=== PATIENT | male | born 1995 | race Caucasian/White ===

== ENCOUNTER 2020-09-07 12:42 | Inpatient (IN) | payer OTHER, MEDICAID, SELFPAY ==
[2020-09-07] VITALS (16 sets, daily range): BP systolic 110–131; BP diastolic 54–73; PULSE 96–116; RESP 18–32; TEMP 37.1–37.3; O2SAT 97–100; BMI 20.9
--- NOTE | 2020-09-07 12:51 | DI.RAD.S_ITS ---
PROCEDURE: XR HAND LT MIN 3V INDICATIONS: hand pain, injury TECHNIQUE: 3 views of the hand(s) acquired. COMPARISON: None. FINDINGS: Bones: No fracture or dislocation. Carpal bones are normally aligned. No suspicious bony lesions. Soft tissues: There is subcutaneous emphysema adjacent to the left 5th metacarpal dorsally. There may be air within the 5th metacarpophalangeal joint space. IMPRESSION: Subcutaneous emphysema dorsal to the 5th metacarpal and potentially within the 5th metacarpophalangeal joint space. No fracture. Dictated by: Barry Mccabe M.D. on 09/07/2020 at 13:11 Approved by: Barry Mccabe M.D. on 09/07/2020 at 13:12
[2020-09-07 13:05] LABS: Add Manual Diff / Slide Review NO; Basophils Absolute Auto 100 /uL (0-100); Basophils Percent Auto 0.4 % (0-2); Eosinophils Absolute Auto 0 /uL (0-450); Hematocrit 34.8 % (41-53); Hemoglobin 11.9 g/dL (13.5-17.5); Lymphocytes Absolute Auto 1400 /uL (1100-4500); Lymphocytes Percent Auto 7.6 % (25-40); Mean Corpuscular HGB Conc 34.3 % (30-36); Mean Corpuscular Hemoglobin 29.6 PG (26-34); Mean Corpuscular Volume 86.3 fL (80-100); Monocytes Absolute Auto 2500 /uL (0-900); Monocytes Percent Auto 13.3 % (3-14); Neutrophils Absolute Auto 14900 /uL (1500-7000); Neutrophils Percent Auto 78.7 % (50-75); Platelet Count 324 X10^3/uL (150-400); Red Blood Cell Count 4.03 X10^6/uL (4.5-5.9); Red Cell Distribution Width 13.9 % (11.6-14.8)
[2020-09-07] MEDS: SODIUM CHLORIDE 0.9% 1,000 ML 1000 ML IV (13:05)
[2020-09-07] MEDS: TET,DIPH,PERTUSS(ACELL),VAC/PF 0.5 ML SYRINGE IM (13:05)
[2020-09-07 13:23] LABS: Erythrocyte Sedimentation Rate 38 MM/HR (0-15); Lactate (Lactic Acid) 1.1 mmol/L (0.7-2.1)
[2020-09-07 13:25] LABS: Alanine Aminotransferase 63 IU/L (<50); Albumin 4.4 g/dL (3.5-5.0); Albumin Globulin Ratio 1.3 (1.0-2.8); Alkaline Phosphatase 104 U/L (38-126); Aspartate Aminotransferase 106 IU/L (17-59); BUN Creatinine Ratio 26.2 (6-22); Bilirubin Total 0.8 mg/dL (0.2-1.3); Blood Urea Nitrogen 37 mg/dL (9-20); Carbon Dioxide 14 mmol/L (22-32); Chloride 96 mmol/L (98-107); Estimated Glomerular Filt Rate > 60.0 mL/min (>60); Globulin 3.5 g/dL (1.7-4.1); Glucose 60 mg/dL (70-100); HEMOLYSIS < 15 (0-50); Potassium 4.1 mmol/L (3.4-5.1); Sodium 128 mmol/L (137-145); Total Protein 7.9 g/dL (6.3-8.2)
[2020-09-07] MEDS: NICOTINE 21 MG PATCH TOP (13:44)
[2020-09-07 13:45] LABS: C-Reactive Protein Quant 22.9 mg/dL (<1.0)
[2020-09-07] MEDS: DEXTROSE 50 % IN WATER 25 GM/50 ML SYRINGE IV (14:05)
[2020-09-07] MEDS: VANCOMYCIN 1,500 MG/300 ML PIGGYBACK 200 MG IV (14:11)
[2020-09-07 14:17] LABS: COVID19 - ADMIT (NP swab/PCR) Negative (Negative)
--- NOTE | 2020-09-07 14:34 | CM.SWNOTE ---
Addendum entered by Radha Sheikh 09/07/20 15:47: DRYING FRAME OPERATOR calls director of casework department Keri with [employer] in the outreach program through [facility] (Ph. # [phone]) and provides update about patient's admit. Keri states she can support patient with coordinating plan once patient is d/c. DRYING FRAME OPERATOR states that DRYING FRAME OPERATOR will ask patient if Keri can be added as his visitor and Keri indicates understanding. DRYING FRAME OPERATOR enters patient's room and asks patient if his director of casework department can be added as visitor and patient states yes, thank you. ERASMO Rosario Addendum entered by Radha Sheikh 09/07/20 14:47: Patient gives consent for DRYING FRAME OPERATOR to speak with [employer] counselor. DRYING FRAME OPERATOR calls [employer] (Ph. #[phone]) and leaves requesting return call. DRYING FRAME OPERATOR provides update regarding patient to [facility] DCP in acute care. ERASMO Rosario Original Note: DRYING FRAME OPERATOR Note DRYING FRAME OPERATOR receives call from director of casework department Keri with [employer] in the outreach program through [place] [facility] (Ph. # [phone]) Keri states that patient presents to this ED due to hand injury via EMS per request of patient, and patient refused to go to [facility]. 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 Keri states that patient pleaded for help and services and Keri recommended patient seek medical care. Keri asks this DRYING FRAME OPERATOR if patient can receive a Vivitrol shot or suboxone and if not she can provide that for patient. Keri suggests DRYING FRAME OPERATOR meet with patient with assistance for referrals to services and getting set up for detox if patient is medically clear. DRYING FRAME OPERATOR states DRYING FRAME OPERATOR will review this information with ED provider. Keri states that patient is homeless and does not like to stay at the [facility] in [place]. [place]. DRYING FRAME OPERATOR asks about patient?s current supports and Keri states that patient is connected with the day facility program at ?[facility]? on [facility] and the [facility] in [place] where he receives food at the drop in center. Keri reports that patient has not been showing up for services recently but pleaded and cried for help today when he spoke to Keri. DRYING FRAME OPERATOR reviews the above with ED Provider Dr. Malone and he states that patient cannot be provided a Vivitrol shot or suboxone at this ED. Dr. Malone reports that this patient may have a broken hand. DRYING FRAME OPERATOR receives consult to meet with patient. Plan: DRYING FRAME OPERATOR assessment to follow ERASMO Rosario
--- NOTE | 2020-09-07 14:34 | ED.UPPEXIN ---
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 Patient used just prior to his arrival. He is homeless and has no ability for follow-up. He has no fever or chills. He has no trouble breathing or chest pain. He denies any chronic medical problems. Patient refused to go to [facility] so was brought here. complaint: injury to: left and hand Other Extremity Injury: Left: hand and arm Handedness: right Place: outdoors Severity: moderate Relieving factors: none Exacerbating factors: movement of extremity Context: direct blow Associated symptoms: denies other symptoms Related Data Allergies Allergy/AdvReac Type Severity Reaction Status Date / Time No Known Drug Allergies Allergy Verified 09/07/20 13:40 Review of Systems Constitutional Constitutional: Denies chills, Denies fatigue, Denies fever(s), Denies frequent falls, Denies lethargy and Denies weakness Eyes Eyes: Denies change in vision, Denies eye discharge, Denies irritation and Denies loss of vision ENT Ears, Nose, Mouth, and Throat: Denies change in voice, Denies dizziness, Denies neck pain, Denies sore throat and Denies throat swelling Cardiovascular Cardiovascular: Denies chest pain, Denies irregular heart rhythm, Denies lightheadedness, Denies palpitations, Denies dyspnea, Denies dyspnea on exertion and Denies orthopnea Respiratory Respiratory: Denies cough, Denies dyspnea, Denies dyspnea on exertion and Denies wheezing Gastrointestinal Gastrointestinal: Denies abdominal pain, Denies change in bowel habits, Denies diarrhea, Denies nausea and Denies vomiting Musculoskeletal Musculoskeletal: Reports limited range of motion, Denies neck pain and Denies numbness Integumentary/Breasts Skin/Breast: Denies pruritus, Reports erythema, Denies rash, Reports skin pain, Reports skin swelling, Reports skin ulcer and Reports wounds Neurologic Neurologic: Denies behavioral changes, Denies confusion, Denies dizziness, Denies frequent falls, Denies loss of vision, Denies numbness and Denies weakness Psychiatric Psychiatric: Denies anxiety, Denies behavioral changes, Denies confusion, Denies depression, Denies homicidal ideation and Denies suicidal ideation Endocrine Endocrine: Denies fatigue, Denies flushing and Denies palpitations Hematologic/Lymphatic Hematologic/Lymphatic: Denies easy bruising Allergic/Immunologic Allergic/Immunologic: Denies urticaria, Denies throat swelling and Denies wheezing Patient History Social History household members: none Smoking Status: Current every day smoker alcohol intake: never Substance Use Type: heroin and amphetamines Exam Narrative Exam Narrative: GENERAL: [24] year old patient appears stated age. Disheveled, unkempt, restless, fidgety and anxious HEAD: Atraumatic. Normocephalic. EYES: Pupils equal round and reactive. Extraocular motions intact. No scleral icterus. No injection or drainage. ENT: Nose without bleeding, purulent drainage. Throat without erythema, tonsillar hypertrophy or exudate. Airway patent. NECK: Trachea midline. Non tender CARDIOVASCULAR: Tachycardic but regular rhythm without murmurs, gallops, or rubs. RESPIRATORY: Clear to auscultation. Breath sounds equal bilaterally. No wheezes, rales, or rhonchi. GASTROINTESTINAL: Abdomen soft, non-tender, nondistended. EXTREMITIES: Left upper extremity with an obvious injury to left lateral hand. He states he punched something and now has this quarter-sized open, draining lesion with surrounding erythema and swelling. Fingers do not demonstrate classic findings suggestive of tenosynovitis. Palm and hand are soft and I have low suspicion for deep space infection. Left forearm has some erythema and areas of induration which raises suspicion of a possible infectious process, however compartments are soft distal structures have intact sensation and cap refills less than 2 seconds. Painful to palpation but no crepitance and no evidence that this pain is out of proportion to the exam BACK: Nontender without deformity or crepitance. No flank tenderness. NEURO: AOx3. SKIN: No rash or erythema of visible areas Initial Vital Signs Initial Vital Signs: Vital Signs Pulse Rate 114 H 09/07/20 12:49 Respiratory Rate 19 09/07/20 12:49 Pulse Oximetry 97 09/07/20 12:49 Course Course Course Narrative: 24-year-old male does have evidence of infection but has normal lactate and my suspicion is that his abnormal vital signs including heart rate and respiratory rate are more likely due to the methamphetamines than a significant underlying sepsis. I do suspect that he has local infectious process Orders Ordered: ED Orders 09/07/20 12:51 Consult to [employer] - [employer] Attendant Stat XR hand LT min 3V Stat 09/07/20 12:55 C-Reactive Protein Quant Stat Complete Blood Count AUTO DIFF Stat Comprehensive Metabolic Panel Stat Erythrocyte Sedimentation Rate Stat Lactate (Lactic Acid) Stat 09/07/20 13:09 COVID19 - ADMIT (SOFTWARE IMPLEMENTATION PROJECT MANAGER swab/PCR) Stat 09/07/20 13:18 Blood Culture Stat 09/07/20 14:30 Urine Drug Screen, Rapid Stat 09/07/20 15:19 Arterial Blood Gas Stat Acetaminophen (Acetaminophen 325 Mg Tablet) 650 mg PO Q6HR PRN PRN Reason: Fever/Mild Pain (1-3) Haloperidol (Haloperidol 5 Mg/Ml Vial) 5 mg IV Q4HR PRN PRN Reason: Agitation Ibuprofen (Ibuprofen 600 Mg Tablet) 600 mg PO Q6HR PRN PRN Reason: Fever/Mild Pain (1-3) Lorazepam (Lorazepam 2 Mg/Ml Inj) 1 mg IV Q4HR PRN PRN Reason: Agitation Naloxone HCl (Naloxone 0.4 Mg/Ml Vial) 0.2 mg IV Q2MIN PRN PRN Reason: Opiate Reversal Discontinued Medications Dextrose (Dextrose 50 % In Water 25 Gm/50 Ml Syringe) 25 gm IV NOW ONE Stop: 09/07/20 14:05 Last Admin: 09/07/20 14:05 Dose: 25 gm Documented by: CARLOS Diphtheria/Tetanus/Acell Pertussis (Tet,Diph,Pertuss(Acell),Vac/Pf 0.5 Ml Syringe) 0.5 ml IM .ONCE ONE Stop: 09/07/20 12:52 Last Admin: 09/07/20 13:05 Dose: 0.5 ml Documented by: CARLOS Sodium Chloride (Normal Saline 0.9%) 1,000 mls @ 1,000 mls/hr IV BOLUS ONE Stop: 09/07/20 13:49 Last Infusion: 09/07/20 14:09 Dose: 0 mls/hr Documented by: Admin: 09/07/20 13:05 Dose: 1,000 mls/hr Documented by: CARLOS Vancomycin HCl/Dextrose (Vancomycin) 1,500 mg in 300 mls @ 200 mls/hr IV NOW ONE Stop: 09/07/20 15:36 Last Infusion: 09/07/20 15:43 Dose: 0 mls/hr Documented by: Admin: 09/07/20 14:11 Dose: 200 mls/hr Documented by: CARLOS Lactated Ringer's (Lactated Ringers) 1,000 mls @ 1,000 mls/hr IV BOLUS ONE Stop: 09/07/20 15:51 Piperacillin/Tazobactam/Dextrose (Zosyn) 3.375 gm in 50 mls @ 12.5 mls/hr IV Q8H MONSERRAT Piperacillin Sod/Tazobactam (Sod 4.5 gm/ Sodium Chloride) 100 mls @ 200 mls/hr IV NOW ONE Stop: 09/07/20 16:44 Influenza Virus Vaccine (Influenza Vaccine 0.5 Ml Syringe) 0.5 ml IM .ONCE ONE Stop: 09/07/20 17:03 Nicotine (Nicotine 21 Mg Patch) 21 mg TOP NOW ONE Stop: 09/07/20 13:41 Last Admin: 09/07/20 13:44 Dose: 21 mg Documented by: CARLOS Ondansetron HCl (Ondansetron 4 Mg/2 Ml Inj) 4 mg IV Q8HR PRN PRN Reason: Nausea And Vomiting Vital Signs Vital signs: Vital Signs - 8 hr 09/07/20 12:49 09/07/20 12:51 09/07/20 13:00 Pulse Rate 114 H 114 H 114 H Respiratory Rate 19 20 22 Blood Pressure 131/63 Pulse Oximetry 97 99 97 09/07/20 13:30 09/07/20 13:44 09/07/20 14:00 Pulse Rate 113 H 105 H 116 H Respiratory Rate 24 24 26 H Blood Pressure 110/54 L 113/58 L Pulse Oximetry 97 97 97 09/07/20 14:30 09/07/20 15:00 09/07/20 15:01 Pulse Rate 109 H 109 H 108 H Respiratory Rate 28 H 30 H 32 H Blood Pressure 119/61 113/57 L Pulse Oximetry 98 98 98 MDM - Extremity Injury (Upper) Lab Data Result diagrams: 09/07/20 12:55 09/07/20 12:55 Labs: Lab Results 09/07/20 09/07/20 09/07/20 Range/Units 12:55 12:55 12:55 WBC 19.0 H (4.5-11.0) X10^3/uL RBC 4.03 L (4.5-5.9) X10^6/uL Hgb 11.9 L (13.5-17.5) g/dL Hct 34.8 L (41-53) % MCV 86.3 (80-100) fL MCH 29.6 (26-34) PG MCHC 34.3 (30-36) % RDW 13.9 (11.6-14.8) % Plt Count 324 (150-400) X10^3/uL Neut % (Auto) 78.7 H (50-75) % Lymph % (Auto) 7.6 L (25-40) % [place] % (Auto) 13.3 (3-14) % Eos % (Auto) 0.0 L (2-4) % Baso % (Auto) 0.4 (0-2) % Neut # (Auto) 65575 H (0551-7897) /uL Lymph # (Auto) 1400 (0264-5488) /uL [place] # (Auto) 2500 H (0-900) /uL Eos # (Auto) 0 (0-450) /uL Baso # (Auto) 100 (0-100) /uL ESR 38 H (0-15) MM/HR ABG pH (7.35-7.45) ABG pCO2 (35-45) mmHg ABG pO2 (80-100) mmHg ABG HCO3 (22-26) mmol/L ABG Total CO2 (21-31) mmol/L ABG O2 Saturation (95-100) % ABG Base Excess (-2-2) mmol/L FiO2 Sodium 128 L (137-145) mmol/L Potassium 4.1 (3.4-5.1) mmol/L Chloride 96 L (98-107) mmol/L Carbon Dioxide 14 L (22-32) mmol/L BUN 37 H (9-20) mg/dL Creatinine 1.41 H (0.66-1.25) mg/dL Estimated GFR > 60.0 (>60) mL/min BUN/Creatinine Ratio 26.2 H (6-22) Glucose 60 L (70-100) mg/dL Lactate (0.7-2.1) mmol/L Calcium 9.0 (8.4-10.2) mg/dL Total Bilirubin 0.8 (0.2-1.3) mg/dL AST 106 H (17-59) IU/L ALT 63 H (<50) IU/L Alkaline Phosphatase 104 (38-126) U/L C-Reactive Protein 22.9 H (<1.0) mg/dL Total Protein 7.9 (6.3-8.2) g/dL Albumin 4.4 (3.5-5.0) g/dL Globulin 3.5 (1.7-4.1) g/dL Albumin/Globulin Ratio 1.3 (1.0-2.8) U Opiates 300ng/mL cut (Negative) Ur Oxycodone Screen (Negative) Urine Methadone Screen (Negative) Ur Barbiturates Screen (Negative) U Tricyclic Antidepress (Negative) Ur Phencyclidine Scrn (Negative) Ur Amphetamines Screen (Negative) U Methamphetamines Scrn (Negative) Ur MDMA Scrn (Ecstasy) (Negative) U Benzodiazepines Scrn (Negative) Urine Cocaine Screen (Negative) U Marijuana (THC) Screen (Negative) SARS-CoV-2 (PCR) (Negative) 09/07/20 09/07/20 09/07/20 Range/Units 12:55 13:09 14:30 WBC (4.5-11.0) X10^3/uL RBC (4.5-5.9) X10^6/uL Hgb (13.5-17.5) g/dL Hct (41-53) % MCV (80-100) fL MCH (26-34) PG MCHC (30-36) % RDW (11.6-14.8) % Plt Count (150-400) X10^3/uL Neut % (Auto) (50-75) % Lymph % (Auto) (25-40) % [place] % (Auto) (3-14) % Eos % (Auto) (2-4) % Baso % (Auto) (0-2) % Neut # (Auto) (6685-1921) /uL Lymph # (Auto) (6141-7542) /uL [place] # (Auto) (0-900) /uL Eos # (Auto) (0-450) /uL Baso # (Auto) (0-100) /uL ESR (0-15) MM/HR ABG pH (7.35-7.45) ABG pCO2 (35-45) mmHg ABG pO2 (80-100) mmHg ABG HCO3 (22-26) mmol/L ABG Total CO2 (21-31) mmol/L ABG O2 Saturation (95-100) % ABG Base Excess (-2-2) mmol/L FiO2 Sodium (137-145) mmol/L Potassium (3.4-5.1) mmol/L Chloride (98-107) mmol/L Carbon Dioxide (22-32) mmol/L BUN (9-20) mg/dL Creatinine (0.66-1.25) mg/dL Estimated GFR (>60) mL/min BUN/Creatinine Ratio (6-22) Glucose (70-100) mg/dL Lactate 1.1 (0.7-2.1) mmol/L Calcium (8.4-10.2) mg/dL Total Bilirubin (0.2-1.3) mg/dL AST (17-59) IU/L ALT (<50) IU/L Alkaline Phosphatase (38-126) U/L C-Reactive Protein (<1.0) mg/dL Total Protein (6.3-8.2) g/dL Albumin (3.5-5.0) g/dL Globulin (1.7-4.1) g/dL Albumin/Globulin Ratio (1.0-2.8) U Opiates 300ng/mL cut Positive H (Negative) Ur Oxycodone Screen Negative (Negative) Urine Methadone Screen Negative (Negative) Ur Barbiturates Screen Negative (Negative) U Tricyclic Antidepress Negative (Negative) Ur Phencyclidine Scrn Negative (Negative) Ur Amphetamines Screen Positive H (Negative) U Methamphetamines Scrn Positive H (Negative) Ur MDMA Scrn (Ecstasy) Negative (Negative) U Benzodiazepines Scrn Negative (Negative) Urine Cocaine Screen Negative (Negative) U Marijuana (THC) Screen Negative (Negative) SARS-CoV-2 (PCR) Negative (Negative) 09/07/20 Range/Units 15:19 WBC (4.5-11.0) X10^3/uL RBC (4.5-5.9) X10^6/uL Hgb (13.5-17.5) g/dL Hct (41-53) % MCV (80-100) fL MCH (26-34) PG MCHC (30-36) % RDW (11.6-14.8) % Plt Count (150-400) X10^3/uL Neut % (Auto) (50-75) % Lymph % (Auto) (25-40) % [place] % (Auto) (3-14) % Eos % (Auto) (2-4) % Baso % (Auto) (0-2) % Neut # (Auto) (1059-4350) /uL Lymph # (Auto) (1550-4693) /uL [place] # (Auto) (0-900) /uL Eos # (Auto) (0-450) /uL Baso # (Auto) (0-100) /uL ESR (0-15) MM/HR ABG pH 7.37 (7.35-7.45) ABG pCO2 27.1 L (35-45) mmHg ABG pO2 105 H (80-100) mmHg ABG HCO3 16 L (22-26) mmol/L ABG Total CO2 16 L (21-31) mmol/L ABG O2 Saturation 98 (95-100) % ABG Base Excess -10.0 L (-2-2) mmol/L FiO2 21 Sodium (137-145) mmol/L Potassium (3.4-5.1) mmol/L Chloride (98-107) mmol/L Carbon Dioxide (22-32) mmol/L BUN (9-20) mg/dL Creatinine (0.66-1.25) mg/dL Estimated GFR (>60) mL/min BUN/Creatinine Ratio (6-22) Glucose (70-100) mg/dL Lactate (0.7-2.1) mmol/L Calcium (8.4-10.2) mg/dL Total Bilirubin (0.2-1.3) mg/dL AST (17-59) IU/L ALT (<50) IU/L Alkaline Phosphatase (38-126) U/L C-Reactive Protein (<1.0) mg/dL Total Protein (6.3-8.2) g/dL Albumin (3.5-5.0) g/dL Globulin (1.7-4.1) g/dL Albumin/Globulin Ratio (1.0-2.8) U Opiates 300ng/mL cut (Negative) Ur Oxycodone Screen (Negative) Urine Methadone Screen (Negative) Ur Barbiturates Screen (Negative) U Tricyclic Antidepress (Negative) Ur Phencyclidine Scrn (Negative) Ur Amphetamines Screen (Negative) U Methamphetamines Scrn (Negative) Ur MDMA Scrn (Ecstasy) (Negative) U Benzodiazepines Scrn (Negative) Urine Cocaine Screen (Negative) U Marijuana (THC) Screen (Negative) SARS-CoV-2 (PCR) (Negative) Point of Care Testing Glucose POC [address] Upper Extremity: Radiologist's Impression: [address] [id number] Scan ReportSigned Patient: Dhaval BuiMR#: [id number]: [id number]:[id number]/Sex: 24 / MDate of Service: 09/07/20Loc: [id number] Number: [id number] Procedure: CT UE LT w con Ordering Provider: Fernando Malone D.O. PROCEDURE: CT UE LT W CON INDICATIONS: IV drug user, concern for deep space infection elbow to hand TECHNIQUE: After the administration of intravenous contrast, 3 mm axial sections acquired of the left forearm , with coronal and sagittal reformats. COMPARISON: None. FINDINGS: Image quality: Reduced by patient motion during image acquisition.. Bones: Quality of visualization is limited by patient motion. At the diaphysis of the radius and ulna what appears to be fracture planes appears to represent a artifact of motion. No osteomyelitis found. No foreign body seen. No gas in the soft tissues found. No rim enhancing abscess is identified Soft tissues: Soft tissue edema is prominent through the forearm, without abscess formation. Cellulitis is the presumed cause. No thrombosis within the arterial or venous structures of the forearm visualized by this study. IMPRESSION: Cellulitis without osteomyelitis or foreign body. No gas in the soft tissues. Patient motion limits quality of the visualization but no definite trauma is found when this is taken into account. Dictated by: Rambo Vaughan M.D. on 09/07/2020 at 16:38 Approved by: Rambo Vaughan M.D. on 09/07/2020 at 16:41 [facility] Narrative Medical decision making narrative: Patient with advanced cellulitis will require IV antibiotics and ongoing evaluation. There is no evidence of a deep space infection requiring surgical debridement currently, however orthopedic involvement has been consulted and they will wait in as needed. Discharge Plan Departure Patient Disposition: Admitted As Inpatient Admit Date/Time: 09/07/20 15:22 Admit Provider: Ruben Powell
--- NOTE | 2020-09-07 14:35 | CM.SWNOTE ---
ROLLING CHAIR PUSHER Assessment ROLLING CHAIR PUSHER - Network Architect Assessment ROLLING CHAIR PUSHER/Network Architect Assessment Time Spent with Patient Start date 09/07/20 Visit Start Time 13:15 End date 09/07/20 Visit End Time 13:40 Total time Care Management spent on 25 patient visit-in minutes Mental Health Screening Include Onset, Duration, Intensity Psych. Hx Mental Health and Chemical Patient states dx of ADHD, Dependency depression and anxiety and reports previously taking Sertoline but he did not notice a difference. Patient states that he took Adderall as a child, patient denies current medication and states he took quite a few medications when I was a child . Patient states ongoing relapse and substance use of Methamphetamine and Heroin and reports he smokes a pack a day of cigarettes. Substance Abuse Screening Include Onset, Duration, Intensity Presenting Problem Patient presents to this ED via EMS with left hand injury. Patient states that used Methamphetamine and Heroin last night. Precipitating Event(s) Patient states that he was upset and angry and punched a wall. Patient Strengths Patient shows some insight. Current Behavioral Health Provider(s) Patient states he saw a Include Facility, Provider, Ph. # counselor from age [age] but did not disclose there name and states that he did not want to engage in therapy at the age of 18. Patient states that he has seen [facility] substance use disorder counselors on and off but not consistently. Family Hx of Behavioral Abuse None reported. Patient states that his family supports him from a distance due to his repeating relapses and it cause turmoil with his family. Rehab Facilities? ((Date(s), Location(s) Patient states he has been to ) rehab 9 times but did not disclose locations and dates. History of Withdrawal? Seizures? Patient did not report history of withdrawals or seizures but reports that he is withdrawing right now. Longest Period of Sobriety Patient did not report longest period of sobriety, patient's case mgr states that he was clean for 3 months prior to recent use. Psychosocial information & Support Patient is 24 y/o homeless Systems male who resides in [place] . Patient states his family supports him from a distance but his mother and aunt are growing old. Patient states he does not want his family to know he is here. School/Work None reported. Legal Concerns Legal Matters - Outstanding Issues None reported. manager spring reports frequent encounters with [place] PD. Mental Status Orientation (Person/Place/Time) A/Ox3. Parent is aware of self , place, and person. Time was not assessed. Stated Mood fine Affect (Congruent with Mood?) Anxious, labile, full range, congruent with mood. Thought Content - Specify/Describe Patient denies hallucinations Obsessions, Delusions, Hallucinations and voices and states he is not schizophrenic. Patient states that he has paranoia for days and days when he is sleep deprived. Thought Processes (Oreancl-Trwrnjuc-Hzqr Disorganized Ijartrpf-Owqztowq-Giyymlthwk- Tfbskxcwigovyv-Robpmug-Rjaawjgvnpmz- Thought Blocking) Speech (Unotys-Joyu-Jrotwio-Rapid-Soft- Rapid, and slurred Loud-Pressured) Motor (Yiyoep-Lpllkvfmu-Ykrd-Other) Excessive, patient shifts legs, head and arms with constant movement and without relief throughout assessment. Insight (Knfo-Iqan-Kjja/Limited) Fair/limited Judgement (Hkhc-Gzrk-Chqr/Limited) Poor/limited Impulse Control (Adequate-Impaired) Impaired Memory (Mpwmksmmd-Jbnerz-Jwybtj, Somewhat intact, not formally Impaired-Intact) assessed Concentration (Intact-Impaired) Patient easily distracted, somewhat intact Attention (Intact-Impaired) Somewhat intact Behavior (Appropriate-Inappropriate) Appropriate, patient was polite and communicative. Patient had poor eye contact with eyes closed. Additional Comment Patient continued to state that he has answered most of these questions before but understands that ROLLING CHAIR PUSHER needs to ask questions to provide assistance. Patient was amicable and compliant in answering ROLLING CHAIR PUSHER's questions but was difficult to understand due to his rapid and slurred speech. Patient displays abnormal movements throughout interview. Risk Assessment Suicidal Ideation (Plan) No Homicidal Ideation (Plan) No Comment Patient denies SI, HI and intention to harm self. Intervention Intervention ROLLING CHAIR PUSHER meets with patient. Patient reports his recent drug use and his self inflicted injury. ROLLING CHAIR PUSHER discusses with patient that patient may need to stay at the hospital until medically clear, patient indicates understanding and agreement. Patient states that he is homeless and has been to rehab 9 times but presents as open to services available to him. Patient gives consent to speak with his case mgr with [facility] program and his Substance Use Disorder counselor at [facility]. Patient presents as agreeable to accept assistance available to him. ROLLING CHAIR PUSHER reviews the above with ED provider Dr. Malone and ELVIN Edmond and both indicate understanding and agreement. It is the opinion of this ROLLING CHAIR PUSHER that patient is not currently safe to d/c to the community. Patient is not medically clear for d/c and will likely be admitted due to injury and infections. Plan RA Plan Patient to be admitted for further medical care due to possible infection Plan for further DCP assessment regarding next steps for detox and/or services when medically clear for d/c. ERASMO Rosario
[2020-09-07 15:25] LABS: UR Morphine/Opiate cutoff 300 Positive (Negative); Ur Creatinine Normal (Normal); Ur Specific Gravity Normal (Normal); Urine Tetrahydrocannabinol Negative (Negative); Urine pH Normal (Normal)
[2020-09-07 15:26] LABS: Urine Amphetamines Positive (Negative); Urine Barbiturates Negative (Negative); Urine Benzodiazepines Negative (Negative); Urine Cocaine Negative (Negative); Urine MDMA Negative (Negative); Urine Methadone Negative (Negative); Urine Methamphetamines Positive (Negative); Urine Oxycodone Negative (Negative); Urine Phencyclidine Negative (Negative); Urine Tricyclic Antidepressant Negative (Negative)
[2020-09-07 15:28] LABS: Fractionated Inspired Oxygen 21; HCO3 ABG 16 mmol/L (22-26); Oxygen Saturation ABG 98 % (95-100); PCO2 ABG 27.1 mmHg (35-45); PO2 ABG 105 mmHg (80-100); TCO2 ABG 16 mmol/L (21-31); pH ABG 7.37 (7.35-7.45)
--- NOTE | 2020-09-07 15:31 | DI.CT.S_ITS ---
PROCEDURE: CT UE LT W CON INDICATIONS: IV drug user, concern for deep space infection elbow to hand TECHNIQUE: After the administration of intravenous contrast, 3 mm axial sections acquired of the left forearm , with coronal and sagittal reformats. COMPARISON: None. FINDINGS: Image quality: Reduced by patient motion during image acquisition.. Bones: Quality of visualization is limited by patient motion. At the diaphysis of the radius and ulna what appears to be fracture planes appears to represent a artifact of motion. No osteomyelitis found. No foreign body seen. No gas in the soft tissues found. No rim enhancing abscess is identified Soft tissues: Soft tissue edema is prominent through the forearm, without abscess formation. Cellulitis is the presumed cause. No thrombosis within the arterial or venous structures of the forearm visualized by this study. IMPRESSION: Cellulitis without osteomyelitis or foreign body. No gas in the soft tissues. Patient motion limits quality of the visualization but no definite trauma is found when this is taken into account. Dictated by: Rambo Vaughan M.D. on 09/07/2020 at 16:38 Approved by: Rambo Vaughan M.D. on 09/07/2020 at 16:41
--- NOTE | 2020-09-07 17:14 | P.CONS_ITS ---
History of Present Illness Consult details Date Patient Seen: 09/07/20 Time Patient Seen: 17:03 Chief complaint: Left Hand Injury/Wound Reason for consult: skin infection, open wound, drug use Requesting provider: Fernando Malone Narrative: 24 yo M with hx of IV drug use and admission to medicine team for cellulitis and ulcer of extremities. Patient is poor historian due to drug usage and does not recall cleared the history of his current skin lesions. Meds Home Medications and Allergies Allergies Allergy/AdvReac Type Severity Reaction Status Date / Time No Known Drug Allergies Allergy Verified 09/07/20 13:40 Exam Vital Signs (past 8 hours): - 09/07/20 12:49 09/07/20 12:51 09/07/20 13:00 Pulse Rate 114 H 114 H 114 H Respiratory Rate 19 20 22 Blood Pressure 131/63 Pulse Oximetry 97 99 97 09/07/20 13:30 09/07/20 13:44 09/07/20 14:00 Pulse Rate 113 H 105 H 116 H Respiratory Rate 24 24 26 H Blood Pressure 110/54 L 113/58 L Pulse Oximetry 97 97 97 09/07/20 14:30 09/07/20 15:00 09/07/20 15:01 Pulse Rate 109 H 109 H 108 H Respiratory Rate 28 H 30 H 32 H Blood Pressure 119/61 113/57 L Pulse Oximetry 98 98 98 09/07/20 16:36 09/07/20 17:04 Pulse Rate Respiratory Rate 18 Blood Pressure Pulse Oximetry 98 Oxygen Delivery Method Room Air Extrem Other: L forearm with 2 cm area of erythema and induration on the ulnar aspect, no open wound on the forearm. 1 cm ulcer to ulnar aspect of left hand without exposed bone, scant serous drainage on exam. right leg with 1.5 cm area of induration and erythema, pain to palpation, no drainage. Objective Labs Result Diagrams: 09/07/20 12:55 09/07/20 12:55 Labs: Laboratory Results - last 24 hr 09/07/20 09/07/20 09/07/20 12:55 12:55 12:55 WBC 19.0 H RBC 4.03 L Hgb 11.9 L Hct 34.8 L MCV 86.3 MCH 29.6 MCHC 34.3 RDW 13.9 Plt Count 324 Neut % (Auto) 78.7 H Lymph % (Auto) 7.6 L [place] % (Auto) 13.3 Eos % (Auto) 0.0 L Baso % (Auto) 0.4 Neut # (Auto) 73371 H Lymph # (Auto) 1400 [place] # (Auto) 2500 H Eos # (Auto) 0 Baso # (Auto) 100 ESR 38 H ABG pH ABG pCO2 ABG pO2 ABG HCO3 ABG Total CO2 ABG O2 Saturation ABG Base Excess FiO2 Sodium 128 L Potassium 4.1 Chloride 96 L Carbon Dioxide 14 L BUN 37 H Creatinine 1.41 H Estimated GFR > 60.0 BUN/Creatinine Ratio 26.2 H Glucose 60 L Lactate Calcium 9.0 Total Bilirubin 0.8 AST 106 H ALT 63 H Alkaline Phosphatase 104 C-Reactive Protein 22.9 H Total Protein 7.9 Albumin 4.4 Globulin 3.5 Albumin/Globulin Ratio 1.3 U Opiates 300ng/mL cut Ur Oxycodone Screen Urine Methadone Screen Ur Barbiturates Screen U Tricyclic Antidepress Ur Phencyclidine Scrn Ur Amphetamines Screen U Methamphetamines Scrn Ur MDMA Scrn (Ecstasy) U Benzodiazepines Scrn Urine Cocaine Screen U Marijuana (THC) Screen SARS-CoV-2 (PCR) 09/07/20 09/07/20 09/07/20 12:55 13:09 14:30 WBC RBC Hgb Hct MCV MCH MCHC RDW Plt Count Neut % (Auto) Lymph % (Auto) [place] % (Auto) Eos % (Auto) Baso % (Auto) Neut # (Auto) Lymph # (Auto) [place] # (Auto) Eos # (Auto) Baso # (Auto) ESR ABG pH ABG pCO2 ABG pO2 ABG HCO3 ABG Total CO2 ABG O2 Saturation ABG Base Excess FiO2 Sodium Potassium Chloride Carbon Dioxide BUN Creatinine Estimated GFR BUN/Creatinine Ratio Glucose Lactate 1.1 Calcium Total Bilirubin AST ALT Alkaline Phosphatase C-Reactive Protein Total Protein Albumin Globulin Albumin/Globulin Ratio U Opiates 300ng/mL cut Positive H Ur Oxycodone Screen Negative Urine Methadone Screen Negative Ur Barbiturates Screen Negative U Tricyclic Antidepress Negative Ur Phencyclidine Scrn Negative Ur Amphetamines Screen Positive H U Methamphetamines Scrn Positive H Ur MDMA Scrn (Ecstasy) Negative U Benzodiazepines Scrn Negative Urine Cocaine Screen Negative U Marijuana (THC) Screen Negative SARS-CoV-2 (PCR) Negative 09/07/20 15:19 WBC RBC Hgb Hct MCV MCH MCHC RDW Plt Count Neut % (Auto) Lymph % (Auto) [place] % (Auto) Eos % (Auto) Baso % (Auto) Neut # (Auto) Lymph # (Auto) [place] # (Auto) Eos # (Auto) Baso # (Auto) ESR ABG pH 7.37 ABG pCO2 27.1 L ABG pO2 105 H ABG HCO3 16 L ABG Total CO2 16 L ABG O2 Saturation 98 ABG Base Excess -10.0 L FiO2 21 Sodium Potassium Chloride Carbon Dioxide BUN Creatinine Estimated GFR BUN/Creatinine Ratio Glucose Lactate Calcium Total Bilirubin AST ALT Alkaline Phosphatase C-Reactive Protein Total Protein Albumin Globulin Albumin/Globulin Ratio U Opiates 300ng/mL cut Ur Oxycodone Screen Urine Methadone Screen Ur Barbiturates Screen U Tricyclic Antidepress Ur Phencyclidine Scrn Ur Amphetamines Screen U Methamphetamines Scrn Ur MDMA Scrn (Ecstasy) U Benzodiazepines Scrn Urine Cocaine Screen U Marijuana (THC) Screen SARS-CoV-2 (PCR) Assessment & Plan Assessment & Plan narrative: Patient is admitted for multiple skin lesions related to drug use. UE CT with contrast does not show abscess that require surgical drainage. I recommend wound care to left hand ulcer using wet-to-dry dressing change BID. Warm compresses to both forearm and leg indurated area. There is minimum subcuatanous involvement at this time. IV antibiotics per medicine team. No surgical treatment indicated at this time.
[2020-09-07 18:17] LABS: Creatine Kinase 2661 U/L (55-170)
[2020-09-07 18:22] LABS: Troponin I < 0.012 ng/mL (0.01-0.034)
[2020-09-07] MEDS: LACTATED RINGERS 1,000 ML 1000 ML IV (18:43)
[2020-09-07] MEDS: PIPERACILLIN/TAZO 4.5 GM in SODIUM CHLORIDE 0.9% 100 ML 25 ML IV (19:00)
[2020-09-07] MEDS: PIPERACILLIN/TAZO 4.5 GM in SODIUM CHLORIDE 0.9% 100 ML 200 ML IV (19:16)
[2020-09-07] MEDS: VANCOMYCIN 1,000 MG/200 ML PIGGYBACK 200 MG IV (20:25)
[2020-09-07] MEDS: LACTATED RINGERS 1,000 ML 150 ML IV (20:27)
--- NOTE | 2020-09-07 20:30 | P.HP_ITS ---
History of Present Illness History of Present Illness Date Patient Seen: 09/07/20 Time Patient Seen: 16:32 Chief complaint: Left Hand Injury/Wound Narrative: Mr. Bui is a 24M with PMH active IV drug use with heroin, and methamphetamines, no other medical issues, he is homeless and lives on street or in shelters. He apparently punched a wall in anger approximately 5 days ago and developed swelling of his left hand. He noted that he was developing an infection at least four days ago. He did use meth and heroin earlier today, and is still somewhat confused in his history. He denies fevers/chills. No chest pain, trouble breathing. No nausea, vomiting, diarrhea, abdominal pain. In the ER, workup was done he was afebrile, tachycardic in the 110s,tachypneic in 20s, satting normally, with normal blood pressures. Labs notable for WBC 19, hemoglobin 11.9, sodium 128, co2 14, BUN 37, creatinine 1.41. CK 2661. ABG pH of 7.37, pco2 27.1, hco3 16. Urine tox positive for opiates and amphetamines. Imaging was done with hand xray showing subcutaneous emphysema dorsal to 5th metacarpal and possibly within joint space. Left upper extremity CT scan showed cellulitis with no osteomyetlitis, abscess, or gas in tissues. He was started on IV antibiotics with vancomycin and zosyn and given IV fluids and admitted for further treatment. Patient History Family & Social History Social History: household members none Prior Living Arrangements Homeless Safety & Behavioral: Feels Safe in Current Yes Environment Been Physically Hurt or No Threatened By a Person Suicidal Ideation Description None Suicide Plan Description No Plan Tobacco & Substance use: Tobacco type cigarettes Smoking Status Current every day smoker Smoking packs per day 1 alcohol intake never Substance Use Type amphetamines,heroin Meds Home Medications and Allergies Home Medications Medication Instructions Recorded Confirmed Type No Known Home Medications 09/07/20 09/07/20 History Allergies Allergy/AdvReac Type Severity Reaction Status Date / Time No Known Drug Allergies Allergy Verified 09/07/20 13:40 Review of Systems Review of Systems Narrative: 14 systems reviewed and negative aside from HPI Exam Vital Signs (past 8 hours): - 09/07/20 12:49 09/07/20 12:51 09/07/20 13:00 Temperature Pulse Rate 114 H 114 H 114 H Respiratory Rate 19 20 22 Blood Pressure 131/63 Pulse Oximetry 97 99 97 09/07/20 13:30 09/07/20 13:44 09/07/20 14:00 Temperature Pulse Rate 113 H 105 H 116 H Respiratory Rate 24 24 26 H Blood Pressure 110/54 L 113/58 L Pulse Oximetry 97 97 97 09/07/20 14:30 09/07/20 15:00 09/07/20 15:01 Temperature Pulse Rate 109 H 109 H 108 H Respiratory Rate 28 H 30 H 32 H Blood Pressure 119/61 113/57 L Pulse Oximetry 98 98 98 09/07/20 16:36 09/07/20 17:00 09/07/20 17:04 Temperature 99.2 F Pulse Rate 104 H Respiratory Rate 22 18 Blood Pressure 110/73 Pulse Oximetry 98 100 09/07/20 19:40 Temperature 98.8 F Pulse Rate 104 H Respiratory Rate 18 Blood Pressure 123/64 Pulse Oximetry 100 Oxygen Delivery Method Room Air Oxygen Flow Rate 0 Narrative Exam Narrative: GEN: restless, anxious, disheveled HEENT: moist mucous membranes, PEERL NECK: no jvd, trachea midline CV: tachycardic, regular rate and rhythm with no murmurs RESPIRATORY: clear bilaterally with no wheezes, rales, or rhonchi. GASTROINTESTINAL: Abdomen soft, non-tender, nondistended. No organomegaly. Normal bowel sounds EXTREMITIES: Left upper extremity with 1cm ulcer on lateral, ulnar aspect of hand. There is surrounding swelling and erythema. No palpable fluctuance or masses or crepitus. No findings of tenosynovitis. Rest of hand is soft with minimal pain to palpation. Left forearm with induration, swelling and pain. Compartment are soft. Sensation intact. Hands have chronic appearing ulcers dime sized and scattered with no erythema or tenderness. Right leg with induration and erythema. NEURO: awake and oriented, answering questions appropriately aside from some tangential responses, no focal deficit, patient restless in bed but moving all extremities PSYCH: pleasant, cooperative, anxious Objective Labs Result Diagrams: 09/07/20 12:55 09/07/20 12:55 Labs: Laboratory Results - last 24 hr 09/07/20 09/07/20 09/07/20 12:55 12:55 12:55 WBC 19.0 H RBC 4.03 L Hgb 11.9 L Hct 34.8 L MCV 86.3 MCH 29.6 MCHC 34.3 RDW 13.9 Plt Count 324 Neut % (Auto) 78.7 H Lymph % (Auto) 7.6 L [facility] % (Auto) 13.3 Eos % (Auto) 0.0 L Baso % (Auto) 0.4 Neut # (Auto) 04421 H Lymph # (Auto) 1400 [facility] # (Auto) 2500 H Eos # (Auto) 0 Baso # (Auto) 100 ESR 38 H ABG pH ABG pCO2 ABG pO2 ABG HCO3 ABG Total CO2 ABG O2 Saturation ABG Base Excess FiO2 Sodium 128 L Potassium 4.1 Chloride 96 L Carbon Dioxide 14 L BUN 37 H Creatinine 1.41 H Estimated GFR > 60.0 BUN/Creatinine Ratio 26.2 H Glucose 60 L Lactate Calcium 9.0 Total Bilirubin 0.8 AST 106 H ALT 63 H Alkaline Phosphatase 104 Total Creatine Kinase Troponin I C-Reactive Protein 22.9 H Total Protein 7.9 Albumin 4.4 Globulin 3.5 Albumin/Globulin Ratio 1.3 U Opiates 300ng/mL cut Ur Oxycodone Screen Urine Methadone Screen Ur Barbiturates Screen U Tricyclic Antidepress Ur Phencyclidine Scrn Ur Amphetamines Screen U Methamphetamines Scrn Ur MDMA Scrn (Ecstasy) U Benzodiazepines Scrn Urine Cocaine Screen U Marijuana (THC) Screen SARS-CoV-2 (PCR) 09/07/20 09/07/20 09/07/20 12:55 12:55 12:55 WBC RBC Hgb Hct MCV MCH MCHC RDW Plt Count Neut % (Auto) Lymph % (Auto) [facility] % (Auto) Eos % (Auto) Baso % (Auto) Neut # (Auto) Lymph # (Auto) [facility] # (Auto) Eos # (Auto) Baso # (Auto) ESR ABG pH ABG pCO2 ABG pO2 ABG HCO3 ABG Total CO2 ABG O2 Saturation ABG Base Excess FiO2 Sodium Potassium Chloride Carbon Dioxide BUN Creatinine Estimated GFR BUN/Creatinine Ratio Glucose Lactate 1.1 Calcium Total Bilirubin AST ALT Alkaline Phosphatase Total Creatine Kinase 2661 H Troponin I < 0.012 C-Reactive Protein Total Protein Albumin Globulin Albumin/Globulin Ratio U Opiates 300ng/mL cut Ur Oxycodone Screen Urine Methadone Screen Ur Barbiturates Screen U Tricyclic Antidepress Ur Phencyclidine Scrn Ur Amphetamines Screen U Methamphetamines Scrn Ur MDMA Scrn (Ecstasy) U Benzodiazepines Scrn Urine Cocaine Screen U Marijuana (THC) Screen SARS-CoV-2 (PCR) 09/07/20 09/07/20 09/07/20 13:09 14:30 15:19 WBC RBC Hgb Hct MCV MCH MCHC RDW Plt Count Neut % (Auto) Lymph % (Auto) [facility] % (Auto) Eos % (Auto) Baso % (Auto) Neut # (Auto) Lymph # (Auto) [facility] # (Auto) Eos # (Auto) Baso # (Auto) ESR ABG pH 7.37 ABG pCO2 27.1 L ABG pO2 105 H ABG HCO3 16 L ABG Total CO2 16 L ABG O2 Saturation 98 ABG Base Excess -10.0 L FiO2 21 Sodium Potassium Chloride Carbon Dioxide BUN Creatinine Estimated GFR BUN/Creatinine Ratio Glucose Lactate Calcium Total Bilirubin AST ALT Alkaline Phosphatase Total Creatine Kinase Troponin I C-Reactive Protein Total Protein Albumin Globulin Albumin/Globulin Ratio U Opiates 300ng/mL cut Positive H Ur Oxycodone Screen Negative Urine Methadone Screen Negative Ur Barbiturates Screen Negative U Tricyclic Antidepress Negative Ur Phencyclidine Scrn Negative Ur Amphetamines Screen Positive H U Methamphetamines Scrn Positive H Ur MDMA Scrn (Ecstasy) Negative U Benzodiazepines Scrn Negative Urine Cocaine Screen Negative U Marijuana (THC) Screen Negative SARS-CoV-2 (PCR) Negative Assessment & Plan Assessment & Plan narrative: Mr. Bui is a 24M with PMH of IV drug abuse with heroin, and meth who presents with hand infection after recent laceration due to punching a wall. 1. Left hand cellulitis, questionable R leg cellulitis -has open ulcer on left hand, with surrounding swelling and erythema that extends up forearm -consistent with cellulitis, with no evidence currently of crepitus, pain out proportion, deep space infection, or compartment syndrome -will order broad spectrum antibiotics with vancomycin and zosyn -blood cultures ordered -patient has multiple causes for tachycardia, and renal dysfunction, think likely from injection drug use, and not sepsis -imaging shows no evidence of gas or abscess -appreciate orthopedic recommendations 2.Acute meth intoxication -as evidenced by tachycardia, fidgeting, positive tox, also has metabolic acidosis -currently patient pleasant but anxious -denies any etoh or benzo use -will attempt to use benzos to control anxiety and agitation, with haldol prn if necessary 3. Heroin abuse -will attempt to limit opiates for pain -may need to order to limit withdrawal -given acute setting will order for tylenol 4. Metabolic acidosis -no anion gap noted -lactate normal -likely in setting of meth intoxication -will need to watch patient's agitation closely, and ordered benzos to prevent extreme agitation, for now not febrile, no hypertension -patient currently pleasant 5. Elevated creatinine -mildly elevated at 1.4 -baseline unknown -possibly mild YOBANY -will continue with IV fluids as below -monitor creatinine closely 6. Mild rhabdomyolysis -CK at 2600 -multiple possible etiologies, but for now no evidence of compartment syndrome -most likely is in setting of meth use -will place patient on normal saline at 150 -check urinalysis for any myoglobinuria -trend CK 7. Transaminitis -mild with AST 106/ALT 63 -etiology unknown -give drug abuse will check hepatitis viral serologies Diet: Regular IVF: 150cc/hr DVT ppx: Lovenox 40U SC Code: Full, patient states he does have anyone to be proxy for his health Quality VTE Deep Vein Thrombosis/Pulmonary Embolism Present on Admission: No MIPS - Admit I confirm the patient?s Advance Care Plan is present, Code status is documented, Surrogate decision maker is in patient?s record [If Yes, STOP here]: Yes
--- NOTE | 2020-09-07 23:18 | PC.NURSE ---
Pt arrived to room @ approximately 1600. Alert/oriented, physically dirty. Pt given shower. Pt has HX of IVDU, heroin & meth. States last used on 09/06/20 Pt SpO2 98% RA IV bolus of 1000 cc given as per orders then to 150cc/hr Started IV ABO Wound to right lower thumb round, red around edges w/some pus present Wet to dry dsg to right thumb area placed as per orders. Dsg also placed to left inner beaver wound similar to above. Pt oriented to room & call system. Appears to moan while sleeping, pt states this is normal when i am coming down Resting quietly the rest of evening. Call light w/in reach, bed alarm on for pt safety. Continue w/plan of care.
[2020-09-08] VITALS (21 sets, daily range): BP systolic 101–146; BP diastolic 50–97; PULSE 84–105; RESP 12–22; TEMP 36.6–37.7; O2SAT 94–100; BMI 20.9
[2020-09-08 00:07] LABS: Appearance Urine UA CLEAR; Bilirubin Urine UA NEGATIVE (NEGATIVE); Color Urine UA YELLOW; Glucose Urine UA NEGATIVE (Negative); Ketones Urine UA 2+ (NEGATIVE); Leukocyte Esterase Urine UA NEGATIVE (NEGATIVE); Nitrite Urine UA NEGATIVE (Negative); Occult Blood Urine UA TRACE-LYSED (Negative); Protein Urine UA TRACE (Negative); Urobilinogen Urine UA 0.2 E.U./dL (0.2); pH Urine UA 5.5 (4.5-8.0)
--- NOTE | 2020-09-08 00:28 | PC.NURSE ---
patient is alert and oriented but soft spoken. Breath sounds CTA with RA sat of 99%. HRR but tachy at 100 bpm apical. Denies nausea. BT present and abdomen is soft. Denies dysuria, frequency or urgency with urination; using urinal to void. UA obtained and sent to lab. Is able to move self in bed. Gait not assessed at this time. Multiple scabbed abrasions on all extremities which patient states is due to meth use. Dressing to left hand and right LE are CDI. Swelling/tenderness/erythema to left forearm and right LE. Denies pain. Refusing to wear ordered SCD's despite education re: risks; instructed to ankle wave when awake. Fall risk score is moderate and bed alarm is activated.
[2020-09-08 01:10] LABS: Bacteria Urine None Seen; RBC Urine None Seen (0-5/HPF); WBC Urine None Seen (0-5/HPF)
[2020-09-08 01:11] LABS: Culture Indicated Urine Cult Not Indicated; Uric Acid Crystals Urine Many
[2020-09-08] MEDS: VANCOMYCIN 1,000 MG/200 ML PIGGYBACK 200 MG IV ×2 (02:51→11:21)
[2020-09-08] MEDS: PIPERACILLIN/TAZO 4.5 GM in SODIUM CHLORIDE 0.9% 100 ML 25 ML IV (04:04)
[2020-09-08] MEDS: LACTATED RINGERS 1,000 ML 150 ML IV (05:15)
[2020-09-08 06:08] LABS: Enterococcus species Not Detected (Not Detect); Listeria monocytogenes Not Detected (Not Detect); Staphylococcus species Not Detected (Not Detect); Streptococcus agalactiae (Gr B Not Detected (Not Detect); Streptococcus pneumonia Not Detected (Not Detect); Streptococcus species Detected (Not Detect)
[2020-09-08 06:09] LABS: Acinetobacter baumannii Not Detected (Not Detect); Candida albicans Not Detected (Not Detect); Candida glabrata Not Detected (Not Detect); Candida krusei Not Detected (Not Detect); Candida parapsilosis Not Detected (Not Detect); Candida tropicalis Not Detected (Not Detect); E. coli Not Detected (Not Detect); Enterobacter cloacae complex Not Detected (Not Detect); Enterobacteriaceae species Not Detected (Not Detect); Haemophilus influenzae Not Detected (Not Detect); Neisseria meningitidis Not Detected (Not Detect); Proteus species Not Detected (Not Detect); Pseudomonas aeruginosa Not Detected (Not Detect); Serratia marcescens Not Detected (Not Detect); Streptococcus pyogenes (Gr A) Detected (Not Detect)
--- NOTE | 2020-09-08 11:29 | DI.ECHO.S_ITS ---
[facility] +---------+ : : [address] : : : : [id number] : : : : Phone: [phone]+ Echocardiogram Report + + :Name: BERTHA PETTIT Study Date: 09/08/2020 Height: 72 in : :[facility] ReadingLocation: Weight: 155 lb : : Gender: Male BSA: 1.9 m2 : :: 1995 Age: 24 yrs BP: 137/58 mmHg: :Reason For Study: Endocarditis : :Ordering Physician: : :MICHAEL ROMO Performed By: Chuy Martinez : :Referring: MICHAEL ROMO : + + Interpretation Summary 1) Normal left ventricular thickness, size, wall motion, and systolic function (EF 55-60%). 2) Normal right ventricular size and function. 3) No significant valvular abnormalities. No obvious vegetation present. 4) No prior Echo available for comparison. If there is clinical concern for endocarditis, consider FAWAD if it would twisting frame changer. Procedure: A two-dimensional transthoracic echocardiogram with color flow and Doppler was performed. The study quality was technically adequate. There is no prior echocardiogram noted for this patient. Left Ventricle: The left ventricle is normal in size and wall thickness. Left ventricular systolic function is normal. The ejection fraction is estimated to be 55-60%. There are no focal wall motion abnormalities. Diastolic parameters suggest probable normal left ventricular diastolic function and normal filling pressures. Right Ventricle: The right ventricle is normal in size and function. Atria: Both atria are normal in size. There is no Doppler evidence for an interatrial shunt. Mitral Valve: The mitral valve is normal in structure and function. There is no vegetation seen on the mitral valve. There is trace mitral regurgitation. Aortic Valve: The aortic valve is normal in structure and function. There is no aortic valvular vegetation. There is no aortic valve stenosis. No aortic regurgitation is present. Tricuspid Valve: The tricuspid valve is normal in structure and function. There is no tricuspid valve vegetation. No tricuspid regurgitation. Pulmonary artery pressures cannot be estimated because of the lack of a measurable TR jet velocity but the IVC suggests a CVP of around 3 mmHg. Pulmonic Valve: The pulmonic valve is not well visualized. There is no obvious vegetation on the pulmonic valve. There is no pulmonic valvular regurgitation. Great Vessels: The aortic root is normal size. The dimensions of the ascending aorta are normal. The IVC is of normal diameter and collapses greater than 50% with a sniff. This suggests a low right atrial pressure of 3 mm Hg. Pericardium/ Pleura There is no pericardial effusion. There is no pleural effusion. MMode/2D Measurements & Calculations LVIDd: 4.7 cm LVOT diam: 2.2 cm LVIDs: 3.2 cm Ao root diam: 2.8 cm FS: 32.8 % asc Aorta Diam: 2.6 cm IVSd: 0.92 cm LVPWd: 0.77 cm LV bowen. diameter/BSA (cm/m^2): 2.5 LV sys. diameter/BSA (cm/m^2): 1.7 LA A2 area: 16.9 cm2 RA long axis: 3.9 cm LA A4 area: 14.9 cm2 RA area: 12.6 cm2 LA length (vol): 4.4 cm RA vol: 34.5 ml LA vol: 48.1 ml RA : 18.0 ml/m2 LA vol index: 25.2 ml/m2 TAPSE: 2.3 cm Doppler Measurements & Calculations Ao V2 max: 150.6 cm/sec LVOT Max Jevon: 113.7 cm/sec Ao V2 mean: 105.5 cm/sec LV V1 max P.2 mmHg Ao max P.1 mmHg LV V1 VTI: 18.3 cm Ao mean P.0 mmHg ROSALIA(I,D): 3.1 cm2 Ao V2 VTI: 23.1 cm ROSALIA(V,D): 3.0 cm2 sev ratio: 0.79 ROSALIA indexed to BSA (cm^2/m^2): 1.6 MV E max jevon: 97.5 cm/sec PA pr(Accel): 35.3 mmHg MV A max jevon: 76.8 cm/sec MV E/A: 1.3 Med Peak E' Jevon: 16.6 cm/sec E/E' med: 5.9 Lat Peak E' Jevon: 16.9 cm/sec E/E' lat: 5.8 E/e' average: 5.8 MV dec time: 0.15 sec SV(LVOT): 72.3 ml Reading Physician:04:46 PM
[2020-09-08] MEDS: CLINDAMYCIN 900 MG/50 ML PIGGYBACK 50 MG IV ×2 (13:36→21:21)
[2020-09-08 13:47] LABS: Add Manual Diff / Slide Review NO; Basophils Absolute Auto 0 /uL (0-100); Basophils Percent Auto 0.1 % (0-2); Eosinophils Absolute Auto 0 /uL (0-450); Eosinophils Percent Auto 0.4 % (2-4); Hematocrit 31.9 % (41-53); Lymphocytes Absolute Auto 1000 /uL (1100-4500); Lymphocytes Percent Auto 10.2 % (25-40); Mean Corpuscular HGB Conc 34.5 % (30-36); Mean Corpuscular Hemoglobin 29.8 PG (26-34); Mean Corpuscular Volume 86.4 fL (80-100); Monocytes Absolute Auto 1100 /uL (0-900); Monocytes Percent Auto 11.2 % (3-14); Neutrophils Absolute Auto 7800 /uL (1500-7000); Neutrophils Percent Auto 78.1 % (50-75); Platelet Count 259 X10^3/uL (150-400); Red Blood Cell Count 3.69 X10^6/uL (4.5-5.9); Red Cell Distribution Width 13.9 % (11.6-14.8)
--- NOTE | 2020-09-08 13:54 | CM.IDA ---
Addendum entered by ERASMO Jauregui 09/08/20 14:04: Patient goes by Darryl Original Note: Initial DCP Assessment Note Patient is a 24 yo male, currently homeless. Patient presents to ER after an injured hand began to swell, patient noticed signs of infection approx 4 days ago. Patient is an active heroin and meth user, recently relapsed after a 3 month period of sobriety. PCP: None Listed Payer: [facility] Reviewed chart, FITTER WELDER Radha Sheikh completed initial FITTER WELDER assessment. See her notes for detail. Patient currently NPO, surgery consulted 09.07.20, no surgery recommended. Surgery returning today to reassess. Patient has strep in his blood, sensitivities are pending. Patient has been calm and cooperative w/care today, however, patient expected to begin w/d process, ELVIN Ventura following closely. Met w/patient to introduce role. Patient pleasant, states he hopes not to return to [facility] if possible it's a trigger. Patient okay w/Senior Merchandiser Keri from [facility] being a part of care/collaboration upon DC. Following closely as medical POC unfolds. ERASMO Jauregui Discharge Planning/Care Management CM Discharge Assessment Start: 09/08/20 13:52 Freq: Status: Active Protocol: Document 09/08/20 13:53 RACHAEL (Rec: 09/08/20 13:54 RACHAEL [id number]) Discharge Planning Assessment Assigned Hydroelectric Plant Operator ERASMO Clarke DPOA/Assigned Designee Name None Advance Directives? No History Provided By Patient Prior Living Arrangements Homeless Household Members none Independent with ADL's Yes Is patient alert and oriented? Yes Barriers to Discharge Yes Comment Homeless, active heroin user, may require ongoing IV abx Discharge Plan Homeless Long-Term Community Services Social Work
[2020-09-08 14:17] LABS: INR 1.3 (0.9-1.3); Prothrombin Time 14.4 SECONDS (10.1-12.7)
[2020-09-08 14:18] LABS: Alanine Aminotransferase 45 IU/L (<50); Albumin 3.1 g/dL (3.5-5.0); Alkaline Phosphatase 76 U/L (38-126); Aspartate Aminotransferase 51 IU/L (17-59); Bilirubin Total 0.3 mg/dL (0.2-1.3); Bilirubin Unconjugated 0.3 mg/dL (0.0-1.1); Creatine Kinase 493 U/L (55-170); HEMOLYSIS < 15 (0-50); Total Protein 6.1 g/dL (6.3-8.2)
[2020-09-08] MEDS: PIPERACILLIN/TAZO 3.375 GM in SODIUM CHLORIDE 0.9% 100 ML 25 ML IV (14:41)
[2020-09-08] MEDS: LACTATED RINGERS 1,000 ML 42 ML IV (16:24)
[2020-09-08] MEDS: METOCLOPRAMIDE 10 MG/2 ML INJ IV (16:25)
[2020-09-08] MEDS: FAMOTIDINE 20 MG/2 ML VIAL IV (16:35)
--- NOTE | 2020-09-08 16:55 | PM.PREOP ---
Pre-operative Note COVID-19 COVID-19 status: Negative Result date/Date tested (Pos, Neg/Pending): 09/06/20 Interval Note History & Physical reviewed/Exam performed by Physician: Yes Changes to H&P: No H&P completed within 30 days and has changed as indicated here:: Addendum made for plan for surgical treatment due to persisting pain and swelling to left arm and right leg. Will take to OR for urgent I&D of his hand/forearm/leg.
--- NOTE | 2020-09-08 17:37 | SUR.OPER ---
Supine on padded OR bed, head on pillow, right arm secured on padded arm board at <90 degrees abduction, left arm on large padded armboard controlled by surgeon, legs uncrossed, safety belt at thigh, tape over blanket over lower left leg.
--- NOTE | 2020-09-08 18:16 | PM.OP.1 ---
Operative Date/Time/Diagnoses Date of procedure: 09/08/20 Time of procedure: 17:02 Pre-op diagnosis: 1. Left hand open wound with exposed extensor tendon 2. Left forearm abscess 3. Left leg abscess Post-op diagnosis: same Procedure & Clinicians Procedure: 1. Left hand irrigation and debridement of skin, muscle and fascia 2. Left forearm incision and drainage of abscess 3. Right leg incision and drainage of abscess Same procedure as scheduled: Yes Indications: Mr. Bui is a 24 yo M with hx of IV drug use and was admitted to medicine for cellulitis and multiple soft tissue lesions as well as intoxication from recreational drugs. Orthopedic service was consulted. Initial CT left forearm with contrast did not show any abscess colletion. Today patient's wound in his left hand continued to drain, his forearm continue to be indurated and warm and painful to examination. Patient's right leg has purulent drainage. After discussing with patient and informing him his current medical status, informed consent was obtained and he was taken to the OR for I&D of his left upper and right lower extremities. Surgeon: Peggy Mendoza Yes if Unassisted: Yes Anesthesia Type: General Operative Notes Closure Type: primary Specimen(s): other (left forearm wound) Applied: other (1/4 inch packing strip to left forearm and right leg) Estimated Blood Loss (mL): 10 Blood products transfused: none Tourniquet time (min): 31 Procedure in detail: After patient was consented of risks and benefits of surgery, informed consent was obtained and placed in the chart. Patient was taken to the operating room. No prophylactic antibiotic was given since patient has been on IV antibiotic therapy since admission. A tourniquet was placed on patient's left upper arm. Patient's left arm and right leg was prepped and draped in sterile fashion. Time-out was performed at this time. Patient's wound was explored. Any unhealthy appearing tissue was excised using scissors and scalpel. Patient's left hand open wound was explored 1st. Using the curette, unhealthy tissue inside the wound was debrided including skin and subcutaneous tissue as well as some granulation tissue. It is identified that patient has exposed extensor tendon as well as joint capsule. There was no joint capsule breach and no joint involvement. The wound was then irrigated with sterile normal saline. 3-0 PDS suture was used to close additional subcutaneous tissue over the extensor tendon. Attention was then turned to the left forearm lesion. Upon palpation there is significant induration or fluctuance in the ulnar aspect of the forearm. A 11 blade was used to make a longitudinal incision along the course of this induration. Approximately 10 cc of purulent material was immediately expressed from the wound. The purulent collection was involving both subcutaneous tissue and the muscle layer. The incision was extended to approximately 2 in in total length. The wound was explored. Additional purulent material expressed total approximately 15 cc of purulent material was expressed from the wound. At this time copious amount of sterile normal saline was used to irrigate the wound. The extended incision was loosely approximated. One quarter-inch packing strip was packed into the wound with a small tail left L side of the skin on the distal end of the incision. Attention was then turned to his right leg. The wound on the anterior lateral aspect of his right leg just distal to his knee was inspected. There was small amount of purulent material that was spontaneously draining. The wound was then expect extended using a 11 blade. Metzenbaum scissor was used to explore the deeper part of the wound. Another 2 cc of purulent material except expressed from the wound. The leg wound was also packed with quarter-inch packing strip. And small tail was left outside of the skin. No suture was placed into the leg wound since it is the small incision. Prior to packing sterile normal saline was also used to irrigate the wound at this time. A small amount of unhealthy material was excised using scalpel which includes skin and subcutaneous tissue. After the incision drainage and irrigation debridement was completed the wounds were covered with Xeroform and gauze. The arm was wrapped in a Fidencio bandage. And a sterile dressing was applied the patient's right leg wound. Prior to prepping and draping patient's body was explored and no other lesion was identified to be indicated for surgical treatment. Patient tolerated the procedure well and there were no complications estimated blood loss is 10 cc. Patient will be admitted to the inpatient hospital for IV therapy to treat his ongoing infection. There is no additional surgical debridement plan for him. Patient's packing strips can be removed tomorrow. Patient can be discharged on oral antibiotics per Medicine team recommendation. Complications: none Post-operative Condition: stable Disposition: PACU Plan for aftercare: Admit to inpatient hospital
[2020-09-08] MEDS: LORazepam 2 MG/ML INJ 1 MG IV ×2 (18:32→18:47)
[2020-09-08] MEDS: ACETAMINOPHEN 325 MG TABLET 650 MG PO (18:42)
[2020-09-08] MEDS: LACTATED RINGERS 1,000 ML 125 ML IV (19:20)
--- NOTE | 2020-09-08 20:23 | PM.PN.1 ---
Subjective Subjective Date Patient Seen: 09/08/20 Time Patient Seen: 08:23 Interval history: Today he is less confused and agitated. However he is feeling anxious, his left forearm is more painful as his R leg. He has no fevers or chills. No chest pain, shortness of breath. Exam Vital Signs (past 8 hours): - 09/08/20 15:50 09/08/20 15:59 09/08/20 16:32 Temperature 99.8 F H 98.6 F Pulse Rate 93 H 92 H Respiratory Rate 16 18 Blood Pressure 146/82 H 125/64 Pulse Oximetry 96 100 100 09/08/20 18:17 09/08/20 18:22 09/08/20 18:27 Temperature 98 F Pulse Rate 88 85 84 Respiratory Rate 21 19 21 Blood Pressure 117/65 123/72 128/78 Pulse Oximetry 99 100 98 09/08/20 18:28 09/08/20 18:33 09/08/20 18:36 Temperature Pulse Rate 85 86 87 Respiratory Rate 12 12 12 Blood Pressure 129/83 134/84 Pulse Oximetry 99 100 100 09/08/20 18:40 09/08/20 18:45 09/08/20 18:49 Temperature Pulse Rate 91 H 87 88 Respiratory Rate 12 20 22 Blood Pressure 138/82 142/97 H Pulse Oximetry 100 100 100 09/08/20 18:52 09/08/20 19:15 09/08/20 19:45 Temperature 98.1 F 98.3 F 97.9 F Pulse Rate 91 H 105 H 91 H Respiratory Rate 16 15 16 Blood Pressure 143/90 H 139/92 H 131/75 Pulse Oximetry 100 97 96 Oxygen Delivery Method Room Air Oxygen Flow Rate 0 Narrative Exam Narrative: GEN: restless, anxious, disheveled HEENT: moist mucous membranes, PEERL NECK: no jvd, trachea midline CV: tachycardic, regular rate and rhythm with no murmurs RESPIRATORY: clear bilaterally with no wheezes, rales, or rhonchi. GASTROINTESTINAL: Abdomen soft, non-tender, nondistended. No organomegaly. Normal bowel sounds EXTREMITIES: Left upper extremity with 1cm ulcer on lateral, ulnar aspect of hand. There is surrounding swelling and erythema. No palpable fluctuance or masses or crepitus. No findings of tenosynovitis. Rest of hand is soft with minimal pain to palpation. Left forearm with induration, swelling and pain which is worsening in extent. Compartment are soft. Sensation intact. Hands have chronic appearing ulcers dime sized and scattered with no erythema or tenderness. Right leg with induration and erythema. NEURO: awake and oriented, answering questions appropriately aside, no focal deficit, patient restless in bed but moving all extremities PSYCH: pleasant, cooperative Objective Labs Result Diagrams: 09/08/20 13:43 09/07/20 12:55 Labs: Laboratory Results - last 24 hr 09/07/20 09/07/20 09/08/20 13:18 23:50 13:20 WBC RBC Hgb Hct MCV MCH MCHC RDW Plt Count Neut % (Auto) Lymph % (Auto) Cole % (Auto) Eos % (Auto) Baso % (Auto) Neut # (Auto) Lymph # (Auto) Cole # (Auto) Eos # (Auto) Baso # (Auto) PT INR Total Bilirubin Conjugated Bilirubin Unconjugated Bilirubin AST ALT Alkaline Phosphatase Total Creatine Kinase Total Protein Albumin Globulin Albumin/Globulin Ratio Urine Color Yellow Urine Appearance Clear Urine pH 5.5 Ur Specific [place] 1.020 Urine Protein Trace H Urine Glucose (UA) Negative Urine Ketones 2+ H Urine Occult Blood Trace-lysed Urine Nitrate Negative Urine Bilirubin Negative Urine Urobilinogen 0.2 Ur Leukocyte Esterase Negative Urine RBC None seen Urine WBC None seen Uric Acid Crystals Many H Urine Bacteria None seen Ur Culture Indicated? Cult not indicated Nasal Screen MRSA (PCR) Positive for mrsa H A. baumannii (PCR) Not detected Sonia albicans (PCR) Not detected C. glabrata (PCR) Not detected C. krusei (PCR) Not detected C. parapsilosis (PCR) Not detected C. tropicalis (PCR) Not detected Enterobacteriac sp PCR Not detected E. cloacae complex PCR Not detected Enterococcus sp PCR Not detected E. coli (PCR) Not detected H. influenzae (PCR) Not detected Klebsiella oxytoca PCR Not detected Klebsiella pneumoniae Not detected List. monocytogenes PCR Not detected N. meningitidis (PCR) Not detected Proteus species (PCR) Not detected Serratia marcescens PCR Not detected Staphylococcus sp PCR Not detected Staph aureus (PCR) Not detected mecA-Methicil Res Gene Not Reportable Streptococcus sp PCR Detected H Group A Strep (PCR) Detected H Strep agalactiae (PCR) Not detected Strep pneumoniae (PCR) Not detected P. aeruginosa (PCR) Not detected Zion/B-Vanco Res Genes Not Reportable KPC-Carbap Res Gene PCR Not Reportable 09/08/20 09/08/20 09/08/20 13:43 13:46 13:47 WBC 10.0 RBC 3.69 L Hgb 11.0 L Hct 31.9 L MCV 86.4 MCH 29.8 MCHC 34.5 RDW 13.9 Plt Count 259 Neut % (Auto) 78.1 H Lymph % (Auto) 10.2 L Cole % (Auto) 11.2 Eos % (Auto) 0.4 L Baso % (Auto) 0.1 Neut # (Auto) 7800 H Lymph # (Auto) 1000 L Cole # (Auto) 1100 H Eos # (Auto) 0 Baso # (Auto) 0 PT 14.4 H INR 1.3 Total Bilirubin 0.3 Conjugated Bilirubin 0.0 Unconjugated Bilirubin 0.3 AST 51 ALT 45 Alkaline Phosphatase 76 Total Creatine Kinase 493 H D Total Protein 6.1 L Albumin 3.1 L Globulin 3.0 Albumin/Globulin Ratio 1.0 Urine Color Urine Appearance Urine pH Ur Specific [place] Urine Protein Urine Glucose (UA) Urine Ketones Urine Occult Blood Urine Nitrate Urine Bilirubin Urine Urobilinogen Ur Leukocyte Esterase Urine RBC Urine WBC Uric Acid Crystals Urine Bacteria Ur Culture Indicated? Nasal Screen MRSA (PCR) A. baumannii (PCR) Sonia albicans (PCR) C. glabrata (PCR) C. krusei (PCR) C. parapsilosis (PCR) C. tropicalis (PCR) Enterobacteriac sp PCR E. cloacae complex PCR Enterococcus sp PCR E. coli (PCR) H. influenzae (PCR) Klebsiella oxytoca PCR Klebsiella pneumoniae List. monocytogenes PCR N. meningitidis (PCR) Proteus species (PCR) Serratia marcescens PCR Staphylococcus sp PCR Staph aureus (PCR) mecA-Methicil Res Gene Streptococcus sp PCR Group A Strep (PCR) Strep agalactiae (PCR) Strep pneumoniae (PCR) P. aeruginosa (PCR) Zion/B-Vanco Res Genes KPC-Carbap Res Gene PCR PFSH Social History household members: none Smoking Status: Current every day smoker alcohol intake: never Assessment & Plan Assessment & Plan narrative: Mr. Bui is a 24M with PMH of IV drug abuse with heroin, and meth who presents with hand infection after recent laceration due to punching a wall. 1. Strep Pyogenes bacteremia -possibly from drug abuse or trauma to hand -growing in one bottle -cultures pending for sensitivities -MRSA swab positive -vancomycin, zosyn, clindamycin IV antibiotics ordered -etiology of infection is unclear, possibly spread from wound on hand, but given drug use would also consider seeding from possible endocarditis -TTE ordered which did not show endocarditis -order daily blood cultures for surveillance -midline placed as can not get blood draws from patient 2. Left hand cellulitis with left forearm cellulitis with abscess -has open ulcer on left hand, with surrounding swelling and erythema that extends up forearm -consistent with cellulitis, with pain worsening today -taken to OR and had drainage of pus from left forearm, 15cc -per ortho exploration had no joint involvement -patient has multiple causes for tachycardia, and renal dysfunction, think likely from injection drug use, and not sepsis -imaging shows no evidence of gas or abscess -appreciate orthopedic recommendations, rec wound care wet to dry dressing changes BID -warm compresses to indurated arm and leg areas 3. R leg cellulitis with abscess drained by surgery -small abscess of only 2cc drained -drained by orthopedic surgery 09/08 -antibiotic treatment as above 4.Acute meth abuse and meth intoxication that is now resolved -as evidenced by tachycardia, fidgeting, positive tox, also has metabolic acidosis -currently patient pleasant but anxious -denies any etoh or benzo use -will attempt to use benzos to control anxiety and agitation, with haldol prn if necessary 5. Heroin abuse -will attempt to limit opiates for pain -may need to order to limit withdrawal -given acute setting will order for tylenol, add tramadol for further pain if needed 6. Metabolic acidosis -no anion gap noted -lactate normal -likely in setting of meth intoxication -will need to watch patient's agitation closely, and ordered benzos to prevent extreme agitation, for now not febrile, no hypertension -patient currently pleasant 7. YOBANY, presumed -etiology is likely secondary to infection vs drug abuse -mildly elevated at 1.4 -baseline unknown -will continue with IV fluids as below -monitor creatinine closely 8. Mild rhabdomyolysis, resolved -CK at 2600, resolved after IV fluids -multiple possible etiologies, but for now no evidence of compartment syndrome -most likely is in setting of meth use -will place patient on normal saline at 150 -check urinalysis for any myoglobinuria -trend CK 9. Transaminitis -mild with AST 106/ALT 63 -etiology unknown, no abdominal pain -patient when altered mentioned possible history of hepatitis C -given drug abuse will check hepatitis viral serologies Diet: Regular IVF: 150cc/hr DVT ppx: Lovenox 40U SC Code: Full, patient states he does have anyone to be proxy for his health Quality VTE Deep Vein Thrombosis/Pulmonary Embolism Present on Admission: No
[2020-09-08 21:35] LABS: BUN Creatinine Ratio 16.3 (6-22); Blood Urea Nitrogen 7 mg/dL (9-20); Calcium 7.6 mg/dL (8.4-10.2); Carbon Dioxide 25 mmol/L (22-32); Chloride 104 mmol/L (98-107); Estimated Glomerular Filt Rate > 60.0 mL/min (>60); Glucose 122 mg/dL (70-100); HEMOLYSIS < 15 (0-50); Potassium 3.3 mmol/L (3.4-5.1); Sodium 135 mmol/L (137-145)
[2020-09-08 22:27] LABS: Hematocrit 30.5 % (41-53); Hemoglobin 10.5 g/dL (13.5-17.5)
[2020-09-08] MEDS: POTASSIUM CHLORIDE IN WATER 10 MEQ/100 ML PIGGYBACK 100 MEQ IV (22:57)
[2020-09-08 23:04] LABS: BUN Creatinine Ratio 19.2 (6-22); Blood Urea Nitrogen 10 mg/dL (9-20); Calcium 8.1 mg/dL (8.4-10.2); Carbon Dioxide 22 mmol/L (22-32); Chloride 103 mmol/L (98-107); Estimated Glomerular Filt Rate > 60.0 mL/min (>60); Glucose 119 mg/dL (70-100); HEMOLYSIS < 15 (0-50); Potassium 3.5 mmol/L (3.4-5.1); Sodium 133 mmol/L (137-145)
[2020-09-08 23:57] LABS: Hepatitis B Surface Antigen NEGATIVE s/c (NEGATIVE)
[2020-09-09] VITALS (7 sets, daily range): BP systolic 133–148; BP diastolic 68–73; PULSE 91–97; RESP 16–20; TEMP 36.6–38.1; O2SAT 95–100
[2020-09-09] MEDS: POTASSIUM CHLORIDE IN WATER 10 MEQ/100 ML PIGGYBACK 100 MEQ IV ×3 (01:10→04:42)
--- NOTE | 2020-09-09 02:04 | PC.NURSE ---
Addendum entered by Renate Lee R.N. 09/09/20 04:44: Nurse was not able to pull the 4th dose at 0345 and called pharmacy to reset order because of late time. dose #4 out 4 doses started now. Original Note: At the start of shift pt is lying comfortably in bed and denied pain, IV potassium is not running, pump reset and dose 2 of 4 will be one hour late...
[2020-09-09] MEDS: CLINDAMYCIN 900 MG/50 ML PIGGYBACK 50 MG IV ×3 (06:22→22:34)
[2020-09-09 06:39] LABS: Hepatitis B Core Antibody Negative (Negative)
[2020-09-09 07:32] LABS: Hematocrit 30.1 % (41-53); Hemoglobin 10.4 g/dL (13.5-17.5); Mean Corpuscular HGB Conc 34.4 % (30-36); Mean Corpuscular Hemoglobin 29.9 PG (26-34); Mean Corpuscular Volume 86.9 fL (80-100); Platelet Count 241 X10^3/uL (150-400); Red Blood Cell Count 3.47 X10^6/uL (4.5-5.9); Red Cell Distribution Width 13.9 % (11.6-14.8); White Blood Cell Count 8.5 X10^3/uL (4.5-11.0)
[2020-09-09 07:39] LABS: BUN Creatinine Ratio 14.6 (6-22); Blood Urea Nitrogen 7 mg/dL (9-20); Calcium 7.8 mg/dL (8.4-10.2); Carbon Dioxide 27 mmol/L (22-32); Chloride 104 mmol/L (98-107); Estimated Glomerular Filt Rate > 60.0 mL/min (>60); Glucose 117 mg/dL (70-100); HEMOLYSIS < 15 (0-50); Magnesium 1.6 mg/dL (1.6-2.3); Potassium 3.8 mmol/L (3.4-5.1); Sodium 136 mmol/L (137-145)
[2020-09-09 08:08] LABS: Hepatitis B Surf Ab Qualitativ Non Reactive (.)
[2020-09-09 08:36] LABS: Hepatitis A Ab IgM Negative (Negative); Hepatitis A Ab Total Positive (Negative)
[2020-09-09] MEDS: PIPERACILLIN/TAZO 4.5 GM in SODIUM CHLORIDE 0.9% 100 ML 200 ML IV (08:47)
[2020-09-09] MEDS: ACETAMINOPHEN 325 MG TABLET 975 MG PO ×3 (08:47→20:10)
[2020-09-09] MEDS: DOCUSATE 100 MG CAPSULE PO ×2 (08:49→20:11)
[2020-09-09] MEDS: VANCOMYCIN 1,500 MG/300 ML PIGGYBACK 200 MG IV (09:32)
[2020-09-09] MEDS: LACTATED RINGERS 1,000 ML 125 ML IV (09:35)
--- NOTE | 2020-09-09 09:39 | OT.IPNOTE ---
Pt refusing OT eval orders and states able to do all his ADL's on his own. Clarified with hospitalist and agreed with therapist to discharge therapy eval orders on the pt.
--- NOTE | 2020-09-09 10:48 | PT-IP ANOTE ---
per MD, pt does not need any PT and will d/c PT eval order.
--- NOTE | 2020-09-09 13:10 | PC.NURSE ---
Assess-Patient is alert and oriented x3, he has been sleeping most of the shift. Started back on zosyn, and vancomycin. Patient is also on clindamycin. He has multiple abrasions to his body, and scabs. L.arm and wrist with a dressing that is cdi. Lower extremities also with scabs. Patient refuses his SCDs and lovenox. He is comfortable and resting comfortably.
--- NOTE | 2020-09-09 13:50 | PM.PN.1 ---
Subjective Subjective Date Patient Seen: 09/09/20 Time Patient Seen: 10:51 Interval history: Yesterday he went to the OR for drainage of his L hand, forearm, and R leg wound. Today he is feeling somewhat improved. His pain is improving. He has no fevers/chills. Exam Vital Signs (past 8 hours): - 09/09/20 07:35 09/09/20 12:30 Temperature 99.5 F 98.9 F Pulse Rate 97 H 91 H Respiratory Rate 20 18 Blood Pressure 148/71 H 137/68 Pulse Oximetry 98 99 Oxygen Delivery Method Room Air Oxygen Flow Rate 0 Narrative Exam Narrative: EN: tired,, no acute distress HEENT: moist mucous membranes, PERRL NECK: no jvd, trachea midline CV: regular rate and rhythm with no murmurs RESPIRATORY: clear bilaterally with no wheezes, rales, or rhonchi. GASTROINTESTINAL: Abdomen soft, non-tender, nondistended. No organomegaly. Normal bowel sounds EXTREMITIES: Left upper extremity with 1cm ulcer on lateral, ulnar aspect of hand, now bandaged. There is surrounding swelling and erythema. No palpable fluctuance or masses or crepitus. No findings of tenosynovitis. Rest of hand is soft with minimal pain to palpation. Left forearm which was indurated and painful is now bandaged and appears less swollen after washout. Compartments soft. Sensation intact. Hands have chronic appearing ulcers dime sized and scattered with no erythema or tenderness. Right leg with induration and erythema that has superficial bandage. NEURO: awake and oriented, answering questions appropriately aside, no focal deficit, moving all extremities PSYCH: pleasant, cooperative Objective Labs Result Diagrams: 09/09/20 07:10 09/09/20 07:10 Labs: Laboratory Results - last 24 hr 09/08/20 09/08/20 09/08/20 13:20 13:43 13:43 WBC 10.0 RBC 3.69 L Hgb 11.0 L Hct 31.9 L MCV 86.4 MCH 29.8 MCHC 34.5 RDW 13.9 Plt Count 259 Neut % (Auto) 78.1 H Lymph % (Auto) 10.2 L Dickenson % (Auto) 11.2 Eos % (Auto) 0.4 L Baso % (Auto) 0.1 Neut # (Auto) 7800 H Lymph # (Auto) 1000 L Dickenson # (Auto) 1100 H Eos # (Auto) 0 Baso # (Auto) 0 PT INR Sodium 133 L Potassium 3.5 Chloride 103 Carbon Dioxide 22 BUN 10 Creatinine 0.52 L Estimated GFR > 60.0 BUN/Creatinine Ratio 19.2 Glucose 119 H Calcium 8.1 L Magnesium Total Bilirubin Conjugated Bilirubin Unconjugated Bilirubin AST ALT Alkaline Phosphatase Total Creatine Kinase Total Protein Albumin Globulin Albumin/Globulin Ratio Nasal Screen MRSA (PCR) Positive for mrsa H Hepatitis A Total & IgM Hep A IgM Ab Confirm Hep Bs Antigen Hep Bs Antibody Hep B Core Total Ab 09/08/20 09/08/20 09/08/20 13:46 13:47 13:47 WBC RBC Hgb Hct MCV MCH MCHC RDW Plt Count Neut % (Auto) Lymph % (Auto) Dickenson % (Auto) Eos % (Auto) Baso % (Auto) Neut # (Auto) Lymph # (Auto) Dickenson # (Auto) Eos # (Auto) Baso # (Auto) PT INR Sodium Potassium Chloride Carbon Dioxide BUN Creatinine Estimated GFR BUN/Creatinine Ratio Glucose Calcium Magnesium Total Bilirubin 0.3 Conjugated Bilirubin 0.0 Unconjugated Bilirubin 0.3 AST 51 ALT 45 Alkaline Phosphatase 76 Total Creatine Kinase 493 H D Total Protein 6.1 L Albumin 3.1 L Globulin 3.0 Albumin/Globulin Ratio 1.0 Nasal Screen MRSA (PCR) Hepatitis A Total & IgM Positive A Hep A IgM Ab Confirm Negative Hep Bs Antigen Hep Bs Antibody Hep B Core Total Ab Negative 09/08/20 09/08/20 09/08/20 13:47 13:47 13:47 WBC RBC Hgb Hct MCV MCH MCHC RDW Plt Count Neut % (Auto) Lymph % (Auto) Dickenson % (Auto) Eos % (Auto) Baso % (Auto) Neut # (Auto) Lymph # (Auto) Dickenson # (Auto) Eos # (Auto) Baso # (Auto) PT 14.4 H INR 1.3 Sodium Potassium Chloride Carbon Dioxide BUN Creatinine Estimated GFR BUN/Creatinine Ratio Glucose Calcium Magnesium Total Bilirubin Conjugated Bilirubin Unconjugated Bilirubin AST ALT Alkaline Phosphatase Total Creatine Kinase Total Protein Albumin Globulin Albumin/Globulin Ratio Nasal Screen MRSA (PCR) Hepatitis A Total & IgM Hep A IgM Ab Confirm Hep Bs Antigen Negative Hep Bs Antibody Non reactive Hep B Core Total Ab 09/08/20 09/08/20 09/09/20 21:09 21:09 07:10 WBC 8.5 RBC 3.47 L Hgb 10.5 L 10.4 L Hct 30.5 L 30.1 L MCV 86.9 MCH 29.9 MCHC 34.4 RDW 13.9 Plt Count 241 Neut % (Auto) Lymph % (Auto) Dickenson % (Auto) Eos % (Auto) Baso % (Auto) Neut # (Auto) Lymph # (Auto) Dickenson # (Auto) Eos # (Auto) Baso # (Auto) PT INR Sodium 135 L Potassium 3.3 L Chloride 104 Carbon Dioxide 25 BUN 7 L Creatinine 0.43 L Estimated GFR > 60.0 BUN/Creatinine Ratio 16.3 Glucose 122 H Calcium 7.6 L Magnesium Total Bilirubin Conjugated Bilirubin Unconjugated Bilirubin AST ALT Alkaline Phosphatase Total Creatine Kinase Total Protein Albumin Globulin Albumin/Globulin Ratio Nasal Screen MRSA (PCR) Hepatitis A Total & IgM Hep A IgM Ab Confirm Hep Bs Antigen Hep Bs Antibody Hep B Core Total Ab 09/09/20 09/09/20 07:10 07:10 WBC RBC Hgb Hct MCV MCH MCHC RDW Plt Count Neut % (Auto) Lymph % (Auto) Dickenson % (Auto) Eos % (Auto) Baso % (Auto) Neut # (Auto) Lymph # (Auto) Dickenson # (Auto) Eos # (Auto) Baso # (Auto) PT INR Sodium 136 L Potassium 3.8 Chloride 104 Carbon Dioxide 27 BUN 7 L Creatinine 0.48 L Estimated GFR > 60.0 BUN/Creatinine Ratio 14.6 Glucose 117 H Calcium 7.8 L Magnesium 1.6 Total Bilirubin Conjugated Bilirubin Unconjugated Bilirubin AST ALT Alkaline Phosphatase Total Creatine Kinase Total Protein Albumin Globulin Albumin/Globulin Ratio Nasal Screen MRSA (PCR) Hepatitis A Total & IgM Hep A IgM Ab Confirm Hep Bs Antigen Hep Bs Antibody Hep B Core Total Ab [facility] Social History household members: none Smoking Status: Current every day smoker alcohol intake: never Assessment & Plan Assessment & Plan narrative: Mr. Bui is a 24M with PMH of IV drug abuse with heroin, and meth who presents with hand infection after recent laceration due to punching a wall. 1. Strep Pyogenes bacteremia -possibly from drug abuse or trauma to hand -growing in one bottle of blood from 09/07, also growing from ulcer of left hand, and from abscess in left forearm -cultures pending for sensitivities -zosyn, clindamycin IV antibiotics ordered, clindamycin to treat and prevent toxic shock syndrome in group a strep, will give clinda for 4 days -follow up cultures, per ID likely switch to cefazolin or penicillin after cultures result for 14 days after las negative culture -TTE ordered which did not show endocarditis -spoke with cardiology who said TTE is an excellent study and that there is no indication given TTE for FAWAD currently -order daily blood cultures for surveillance -midline placed as can not get blood draws from patient 2. Left hand cellulitis with open ulcer near fifth finger -open ulce swab growing group a strep and staph aureus -patient had nasal swab that was MRSA positive -follow up sensitivities for strep and staph -for now will continue on vancomycin -if patient has MSSA, cefazolin could treat both MSSA and group a strep, for two week course -if patietn has MRSA, then per ID can give linezolid or vancomycin, and then could give penicillin for group strep a pending sensitivities 3. Left forearm cellulitis with abscess -has left forearmswelling and erythema that extends up forearm -consistent with cellulitis, with pain worsening today -taken to OR on 09/08 and had drainage of pus from left forearm, 15cc -per ortho exploration had no joint involvement -patient has multiple causes for tachycardia, and renal dysfunction, think likely from injection drug use, and not sepsis -imaging shows no evidence of gas -appreciate orthopedic recommendations, rec wound care wet to dry dressing changes BID -warm compresses to indurated arm and leg areas -abscess growing group strep a 3. R leg cellulitis with abscess drained by surgery -small abscess of only 2cc drained, not sent to micro -drained by orthopedic surgery 09/08 -antibiotic treatment as above 4.Acute meth abuse and meth intoxication that is now resolved -as evidenced by tachycardia, fidgeting, positive tox, also has metabolic acidosis -currently patient pleasant but withdrawn -denies any etoh or benzo use -will attempt to use benzos to control anxiety and agitation, with haldol prn if necessary 5. Heroin abuse -will attempt to limit opiates for pain -may need to order to limit withdrawal -given acute setting will order for tylenol, add tramadol for further pain if needed 6. Metabolic acidosis, resolved -no anion gap noted -lactate normal -likely in setting of meth intoxication -will need to watch patient's agitation closely, and ordered benzos to prevent extreme agitation, for now not febrile, no hypertension -patient currently pleasant 7. YOBANY, resolved -etiology is likely secondary to infection vs drug abuse -mildly elevated at 1.4, now improved to 0.4 -monitor creatinine closely on multi medication regimen 8. Mild rhabdomyolysis, resolved -CK at 2600, resolved after IV fluids -multiple possible etiologies, but for now no evidence of compartment syndrome -most likely is in setting of meth use -fluid stopped when YOBANY and rhabdo resolved -check urinalysis for any myoglobinuria, negative -trend CK 9. Transaminitis -mild with AST 106/ALT 63 -etiology unknown, no abdominal pain -patient when altered mentioned possible history of hepatitis C -given drug abuse will check hepatitis viral serologies Diet: Regular IVF: stopped IVF DVT ppx: Lovenox 40U SC Code: Full, patient states he does have anyone to be proxy for his health Quality VTE Deep Vein Thrombosis/Pulmonary Embolism Present on Admission: No
[2020-09-09] MEDS: PIPERACILLIN/TAZO 3.375 GM in SODIUM CHLORIDE 0.9% 100 ML 25 ML IV ×2 (15:35→21:24)
[2020-09-09] MEDS: VANCOMYCIN 1,000 MG/200 ML PIGGYBACK 200 MG IV ×2 (20:10→22:57)
[2020-09-09] MEDS: SENNOSIDES 8.6 MG TABLET 17.2 MG PO (20:11)
--- NOTE | 2020-09-09 23:41 | PC.NURSE ---
KETTLE WORKER note: refused vital signs. When I walked in Patient immediately said I refuse. I hadn't even said what I was going to do. Can I take your vitals? Patient reiterated I refuse. I let RN know.
[2020-09-10] MEDS: VANCOMYCIN 1,000 MG/200 ML PIGGYBACK 200 MG IV ×3 (03:29→17:19)
--- NOTE | 2020-09-10 03:50 | PC.NURSE ---
nurse went in to draw blood for the vanco peak, pt refused and states that he is tired and we have drawn enough blood. Nurse did some pt education on reason for draw, however pt continued to refuse. Provider notified and pt will need to be educated again on day shift.
[2020-09-10] MEDS: PIPERACILLIN/TAZO 3.375 GM in SODIUM CHLORIDE 0.9% 100 ML 25 ML IV ×3 (04:54→20:24)
--- NOTE | 2020-09-10 05:20 | PC.NURSE ---
SHEAR TENDER note: 0430 went to do vitals, patient refused. I refuse as soon as the door opened. I asked Hey, can I just take some vitals? No I refuse. I counted his respirations from outside.
[2020-09-10 05:21] VITALS: RESP 17
[2020-09-10] MEDS: HYDROCODONE/ACET 5/325 TABLET 1 TAB PO (06:30)
[2020-09-10] MEDS: CLINDAMYCIN 900 MG/50 ML PIGGYBACK 50 MG IV ×3 (06:32→21:30)
--- NOTE | 2020-09-10 06:48 | PC.NURSE ---
pt refused both set of vitals on shift, pt also refused blood draw for 0330 vanco holderness, provider and pharmacy notified and re set for day shift. Orders for both pipercillin and clindamiacin ordered to run at same time, nurse verified with pharmacist and is ok to run together. Provider notified and provider also ordered ativan for agitation as needed for with drawl symptoms. Pt agreed to take ativan and then refused and asked to hold off for now Pt stated that he was having 8/10 right knee pain and agreed to take pain meds, nurse gave PRN norco 5-325 as ordered Pt is now lying comfortably in bed watching TV and having snacks.
[2020-09-10] MEDS: SODIUM CHLORIDE 0.9% 1,000 ML 21 ML IV (07:30)
[2020-09-10 07:32] VITALS: BP 141/75; PULSE 83; RESP 16; TEMP 36.9; O2SAT 100
[2020-09-10 09:56] LABS: Hematocrit 32.6 % (41-53); Mean Corpuscular HGB Conc 33.7 % (30-36); Mean Corpuscular Hemoglobin 29.6 PG (26-34); Platelet Count 277 X10^3/uL (150-400); Red Cell Distribution Width 14.3 % (11.6-14.8); White Blood Cell Count 6.7 X10^3/uL (4.5-11.0)
[2020-09-10 10:05] LABS: BUN Creatinine Ratio 19.3 (6-22); Blood Urea Nitrogen 11 mg/dL (9-20); Calcium 8.6 mg/dL (8.4-10.2); Carbon Dioxide 23 mmol/L (22-32); Chloride 106 mmol/L (98-107); Estimated Glomerular Filt Rate > 60.0 mL/min (>60); Glucose 128 mg/dL (70-100); HEMOLYSIS < 15 (0-50); Sodium 135 mmol/L (137-145)
[2020-09-10 10:10] LABS: Vancomycin Trough 10.1 ug/mL (10-20)
--- NOTE | 2020-09-10 10:15 | P.PN_ITS ---
Subjective Subjective Date Patient Seen: 09/10/20 Time Patient Seen: 11:15 Interval history: He has been refusing vancomycin trough levels overnight but says he will allow them to be done this morning. He tells me that he barely slept last night. His CK level dropped from 2661 down to 493. His BMP was normal yesterday and the CBC was normal yesterday. MRSA is growing in the wound culture. Group A strep is growing in the blood cultures. Exam Vital Signs (past 8 hours): - 09/10/20 05:09/10/20 07:32 Temperature 98.5 F Pulse Rate 83 Respiratory Rate 17 16 Blood Pressure 141/75 H Pulse Oximetry 100 Oxygen Delivery Method Room Air Oxygen Flow Rate 0 Narrative Exam Narrative: He is alert and oriented x3. He is in no apparent distress. Heart is regular rate and rhythm without murmur Lungs are clear to auscultation bilaterally Extremities have no ankle edema. The left hand shows resolving wounds. There are scabs on his face. Objective Labs Result Diagrams: 09/10/20 09:40 09/10/20 09:40 Labs: Laboratory Results - last 24 hr 09/08/20 09/10/20 09/10/20 13:47 09:40 09:40 WBC 6.7 RBC 3.70 L Hgb 11.0 L Hct 32.6 L MCV 88.0 MCH 29.6 MCHC 33.7 RDW 14.3 Plt Count 277 Sodium 135 L Potassium 4.0 Chloride 106 Carbon Dioxide 23 BUN 11 Creatinine 0.57 L Estimated GFR > 60.0 BUN/Creatinine Ratio 19.3 Glucose 128 H Calcium 8.6 Vancomycin Trough HCV Quantitation Hcv not detected HCV RNA (PCR) IU log10 TNP Hepatitis C Genotype TNP Ref Test Comments Comment 09/10/20 09:40 WBC RBC Hgb Hct MCV MCH MCHC RDW Plt Count Sodium Potassium Chloride Carbon Dioxide BUN Creatinine Estimated GFR BUN/Creatinine Ratio Glucose Calcium Vancomycin Trough 10.1 HCV Quantitation HCV RNA (PCR) IU log10 Hepatitis C Genotype Ref Test Comments [facility] Social History household members: none Smoking Status: Current every day smoker alcohol intake: never Assessment & Plan Assessment & Plan narrative: Mr. Bui is a 24M with PMH of IV drug abuse with heroin, and meth who presents with hand infection after recent laceration due to punching a wall. 1. Strep Pyogenes/MRSA bacteremia -possibly from drug abuse or trauma to hand -growing in one bottle of blood from 09/07, also growing from ulcer of left hand, and from abscess in left forearm -cultures pending for sensitivities -zosyn, Vandomycin, clindamycin IV, clindamycin to treat and prevent toxic shock syndrome in group a strep, will give clinda for 4 days -follow up cultures, Vancomycin for 14 days after last negative culture -TTE ordered which did not show endocarditis -spoke with cardiology who said TTE is an excellent study and that there is no indication given TTE for FAWAD currently -order daily blood cultures for surveillance -midline placed as can not get blood draws from patient 2. Left hand cellulitis with open ulcer near fifth finger -open ulcer swab growing group a strep and MRSA -patient had nasal swab that was MRSA positive -follow up sensitivities for strep and staph -2 weeks of IV vancomycin, penicillin for group strep a pending sensitivities 3. Left forearm cellulitis with abscess -had left forearm swelling and erythema that extended up forearm -consistent with cellulitis, with pain worsening today -taken to OR on 09/08 and had drainage of pus from left forearm, 15cc -per ortho exploration had no joint involvement -patient has multiple causes for tachycardia, and renal dysfunction, think likely from injection drug use, and not sepsis -imaging shows no evidence of gas -appreciate orthopedic recommendations, rec wound care wet to dry dressing changes BID -warm compresses to indurated arm and leg areas -abscess growing group strep A and MRSA 3. R leg cellulitis with abscess drained by surgery -small abscess of only 2cc drained, not sent to micro -drained by orthopedic surgery 09/08 -antibiotic treatment as above 4.Acute meth abuse and meth intoxication that is now resolved -as evidenced by tachycardia, fidgeting, positive tox, also has metabolic a cidosis -currently patient pleasant but withdrawn -denies any etoh or benzo use -will attempt to use benzos to control anxiety and agitation, with haldol prn if necessary 5. Heroin abuse -will attempt to limit opiates for pain -may need to order to limit withdrawal -given acute setting will order for tylenol, add tramadol for further pain if needed 6. Metabolic acidosis, resolved -no anion gap noted -lactate normal -likely in setting of meth intoxication -will need to watch patient's agitation closely, and ordered benzos to prevent extreme agitation, for now not febrile, no hypertension -patient currently pleasant 7. YOBANY, resolved 8. Mild rhabdomyolysis, resolved -CK at 2600, resolved after IV fluids -multiple possible etiologies, but for now no evidence of compartment syndrome -most likely is in setting of meth use -fluid stopped when YOBANY and rhabdo resolved 9. Transaminitis -mild with AST 106/ALT 63 -etiology unknown, no abdominal pain -patient when altered mentioned possible history of hepatitis C -given drug abuse will check hepatitis viral serologies Diet: Regular IVF: stopped IVF DVT ppx: Lovenox 40U SC Code: Full, patient states he does have anyone to be proxy for his health Quality VTE Deep Vein Thrombosis/Pulmonary Embolism Present on Admission: No
[2020-09-10 11:59] LABS: Vancomycin Peak 37.2 ug/mL (20-40)
--- NOTE | 2020-09-10 12:49 | CM.DPNOTE ---
Addendum entered by ERASMO Jauregui 09/10/20 15:26: VM x2 received today from patient's mother Kaylynn Bui P# [phone], she states it's a very long story about what's been going on for the last 6 years...requests assist from TRANSPORTATION PLANNING TECHNICIAN team to get patient back to [facility] upon DC. This TRANSPORTATION PLANNING TECHNICIAN unable to review this w/patient today. Will continue to follow and review DC options w/patient as needed. Original Note: DCP Note According to discussion in multidisciplinary rounds this morning, patient will require at least 2 weeks of IV abx, Dr Ramsey expected it would be Ceftriaxone Q24 and Vanco, possibly Q6-8 depending on trough level. Patient refusing care overnight but has allowed some this morning, states he did not sleep well last night. Since patient is an active IVDU, patient expected to remain admitted for the remainder of his IV abx dose.. d/t the potential risk of fatality if patient were to DC home and use PICC or midline for drug use. This TRANSPORTATION PLANNING TECHNICIAN unable to coordinate w/Non Destructive Evaluation Manager Keri this week d/t caseload demands, however, patient would benefit from coordination of services before DC if TRANSPORTATION PLANNING TECHNICIAN team available to do so. RACHAEL
[2020-09-10 16:10] VITALS: BP 143/83; PULSE 81; RESP 17; TEMP 36.5; O2SAT 99
[2020-09-10] MEDS: LORazepam 2 MG/ML INJ 1 MG IV (21:34)
--- NOTE | 2020-09-10 21:41 | PC.NURSE ---
Evening Shift Note Per REHEATER this patient declining vitals this evening. This RN at bedside asking patient why he refused vitals, patient states I'm alive and I just want to sleep. Patient also refusing dressing changes this evening. Per MD report recommendation for BID wet to dry dressings. Order to reinforce as needed. This RN able to visually inspect dressing on leg and forearm. Dressing intact with dry drainage, wound on L hand SAE. This RN asked patient what happened to dressing on hand patient stated that he took it off due to limited range on motion. This RN educated patient on importance of BID dressing changes and vitals sign checks. Patient stated maybe tomorrow.
[2020-09-10] MEDS: VANCOMYCIN 1,000 MG/200 ML PIGGYBACK 150 MG IV (22:49)
[2020-09-11] VITALS (7 sets, daily range): BP systolic 115–144; BP diastolic 60–99; PULSE 73–97; RESP 14–20; TEMP 36.3–37.1; O2SAT 97–99
[2020-09-11] MEDS: PIPERACILLIN/TAZO 3.375 GM in SODIUM CHLORIDE 0.9% 100 ML 25 ML IV (04:21)
--- NOTE | 2020-09-11 05:17 | PC.NURSE ---
nurse reported to hospitalist at begining of shift that pt was no longer using midline per manager benefit report and antibiotics were being run through [facility], hospitalist ordered for vanco to go through midline when time. nurse attempted to administer vanco through midline at 0500, pt refused saying that it is not working and they already tried. Nurse educated pt on importance of using midline with vanco and offered to hep flush midline to use for vanco, pt declined and said it could wait until day time to mess with it and refused to let the nurse proceed. nurse notified hospitalist of pt refusing vanco and the hospitalist okayed for vanco to wait for day time and to continue with other antibiotics in [facility] IV for now.
[2020-09-11] MEDS: CLINDAMYCIN 900 MG/50 ML PIGGYBACK 50 MG IV ×3 (06:12→22:37)
--- NOTE | 2020-09-11 07:43 | PM.PN.1 ---
Subjective Subjective Date Patient Seen: 09/11/20 Interval history: Overnight he refused to do the vancomycin troughs and peaks. He also refused 1 of his vancomycin doses and his morning labs. The white blood count is 6.7 with a hemoglobin of 11.0 and platelets of 277. The BMP is normal. His blood cultures and wound cultures are growing MRSA and strep pyogenes. He will need to stay on vancomycin and penicillin until September 23. His blood pressure is 139/99. When I talked to him about the duration of treatment and the need to cooperate with blood draws in order to optimize that treatment he said ?okay I guess I do not have choice. ? Exam Vital Signs (past 8 hours): - 09/11/20 01:00 09/11/20 05:43 Temperature 98.8 F 98.5 F Pulse Rate 81 74 Respiratory Rate 14 16 Blood Pressure 139/99 H Pulse Oximetry 99 97 Oxygen Delivery Method Room Air Oxygen Flow Rate 0 Narrative Exam Narrative: He is alert and oriented. He is in no apparent distress. He is more cooperative when I speak with him than he had been with nursing staff earlier. Heart is regular rate and rhythm without murmur Lungs are clear to auscultation bilaterally Extremities have no ankle edema The left forearm still has quite a bit of an area of swelling where the incision and drainage was done. The scabbed areas on the hands are healing. Objective Labs Result Diagrams: 09/10/20 09:40 09/10/20 09:40 Labs: Laboratory Results - last 24 hr 09/08/20 09/10/20 09/10/20 13:47 09:40 09:40 WBC 6.7 RBC 3.70 L Hgb 11.0 L Hct 32.6 L MCV 88.0 MCH 29.6 MCHC 33.7 RDW 14.3 Plt Count 277 Sodium 135 L Potassium 4.0 Chloride 106 Carbon Dioxide 23 BUN 11 Creatinine 0.57 L Estimated GFR > 60.0 BUN/Creatinine Ratio 19.3 Glucose 128 H Calcium 8.6 Vancomycin Peak Vancomycin Trough HCV Quantitation Hcv not detected HCV RNA (PCR) IU log10 TNP Hepatitis C Genotype TNP Ref Test Comments Comment 09/10/20 09/10/20 09:40 11:25 WBC RBC Hgb Hct MCV MCH MCHC RDW Plt Count Sodium Potassium Chloride Carbon Dioxide BUN Creatinine Estimated GFR BUN/Creatinine Ratio Glucose Calcium Vancomycin Peak 37.2 Vancomycin Trough 10.1 HCV Quantitation HCV RNA (PCR) IU log10 Hepatitis C Genotype Ref Test Comments PFSH Social History household members: none Smoking Status: Current every day smoker alcohol intake: never Assessment & Plan Assessment & Plan narrative: Mr. Bui is a 24M with PMH of IV drug abuse with heroin, and meth who presented with a hand infection after a recent laceration due to punching a wall. 1. Strep Pyogenes/MRSA bacteremia -related to drug abuse and caused by trauma to hand -growing in one bottle of blood from 09/07, also growing from ulcer of left hand, and from abscess in left forearm -he has been on Zosyn, vancomycin clindamycin. The clindamycin was to treat and prevent toxic shock syndrome in group A strep, given for 4 days so will be stopped. -Penicillin 3 million units q.4 hours and vancomycin per pharmacy to end on 09/23. -1st negative blood culture was on 09/09 so antibiotic duration of 2 weeks will end on 09/23. -TTE ordered which did not show endocarditis -spoke with cardiology who said TTE is an excellent study and that there is no indication given TTE for FAWAD currently -midline has to be replaced today. -at this point the patient states that he is willing to stay 12 more days to complete the treatment. Discharge to a home or outpatient IV antibiotic treatment with a central line in place in the context of drug use is contraindicated. 2. Left hand cellulitis with open ulcer near fifth finger -open ulcer swab growing group a strep and MRSA -patient had nasal swab that was MRSA positive -2 weeks of IV vancomycin, penicillin for group strep a pending sensitivities 3. Left forearm cellulitis with abscess -had left forearm swelling and erythema that extended up forearm -taken to OR on 09/08 and had drainage of pus from left forearm, 15cc -per ortho exploration had no joint involvement -patient has multiple causes for tachycardia, and renal dysfunction, think likely from injection drug use, and not sepsis -imaging shows no evidence of gas -appreciate orthopedic recommendations, rec wound care wet to dry dressing changes BID -warm compresses to indurated arm and leg areas -abscess growing group strep A and MRSA 3. R leg cellulitis with abscess drained by surgery -small abscess of only 2cc drained, not sent to micro -drained by orthopedic surgery 09/08 -antibiotic treatment as above 4.Acute meth abuse and meth intoxication that is now resolved -as evidenced by tachycardia, fidgeting, positive tox, also has metabolic acidosis -currently patient pleasant but withdrawn -denies any etoh or benzo use -will attempt to use benzos to control anxiety and agitation, with haldol prn if necessary 5. Heroin abuse -will attempt to limit opiates for pain -may need to order to limit withdrawal -given acute setting will order for tylenol, add tramadol for further pain if needed 6. Metabolic acidosis, resolved 7. YOBANY, resolved 8. Mild rhabdomyolysis, resolved -CK at 2600, resolved after IV fluids -most likely is in setting of meth use -fluid stopped when YOBANY and rhabdo resolved 9. Transaminitis -mild with AST 106/ALT 63 -etiology unknown, no abdominal pain -patient when altered mentioned possible history of hepatitis C -given drug abuse will check hepatitis viral serologies Diet: Regular IVF: stopped IVF DVT ppx: Lovenox 40U SC Code: Full, patient states he does not have anyone to be proxy for his health Quality VTE Deep Vein Thrombosis/Pulmonary Embolism Present on Admission: No
--- NOTE | 2020-09-11 08:54 | PC.NURSE ---
Addendum entered by Noelle Villanueva R.N. 09/11/20 15:21: Patients abcess that was drained to his left forearm with sutures and packing just taken out and dressing applied to area. Area with light pink drainage, he also had an abcess drained from the l.side of his lower leg. Packing taken out and allevyn dressing applied. Original Note: Assess- Patient is awake and hesitant about getting a picc line. This RN talked to him about it as well as doctor and another staff member. He is agreeable to this at this time. Patient has multiple skin issues that can be seen under skin assessment. He is up independently and has been using the urinal. Patient does pick at his scabs, explained to him that if he does this, he could get more infection in those area's. Bandaide to r. small incision from I&D with suture, cdi. Patient up to the bathroom and is talking to the doctor now.
[2020-09-11] MEDS: PENICILLIN G POTASSIUM 3,000,000 UNIT/50 ML FROZ.PIGGY 100 UNIT IV ×3 (12:41→20:54)
--- NOTE | 2020-09-11 15:24 | CM.DPC ---
Addendum entered by Lexis Finn 09/11/20 16:16: SENIOR CLINICAL RESEARCH ASSOCIATE Student and SENIOR CLINICAL RESEARCH ASSOCIATE gathered per chart review and toxicology screen patient was positive on admission for: Opiates, Amphetamines and Methamphetamines. Connie Finn, ERASMO Barillas Original Note: DCP/continued: Reviewed ED and floor SENIOR CLINICAL RESEARCH ASSOCIATE notes. Patient scheduled to get PICC line placed today. Current treatment includes IV abx until September 23? SENIOR CLINICAL RESEARCH ASSOCIATE will confirm date in AM with provider. Nursing reports that patient has been agreeable to most care but has refused care at other times? Patient unable to complete IV abx as outpatient due to extensive history of IVDU. SENIOR CLINICAL RESEARCH ASSOCIATE met with patient this afternoon explained SENIOR CLINICAL RESEARCH ASSOCIATE role and notified patient that this SENIOR CLINICAL RESEARCH ASSOCIATE will be covering for the next 4 days. Patient alert and oriented at time of visit. Patient denies suicidal or homicidal ideation. Patient also denies current withdrawal symptoms. Patient refused to answer how much illegal drugs that he did prior to coming in? Patient requesting a cigarette? SENIOR CLINICAL RESEARCH ASSOCIATE informed patient this is an No Smoking facility. SENIOR CLINICAL RESEARCH ASSOCIATE offered to ask provider for nicotine patch. Patient aware and agreeable. SENIOR CLINICAL RESEARCH ASSOCIATE asked Dr. Ramsey and order placed for nicotine patch. Patient admits to wanting to leave on occasion? Patient made aware that hospital cannot force him to stay and complete IV abx course. Patient reports that as of right now he will stay. Requested that patient let staff know if he feels strong desire to leave. Patient agreeable and nursing staff made aware. Patient currently with PICC line and actively using IV substances (outpatient). Patient is at high risk to leave AMA. SENIOR CLINICAL RESEARCH ASSOCIATE suggested room change so that patient can be watched closer and for temptation purposes. Nurse coordinator made aware this AM. Unclear if room change will be considered. In addition to the above, patient requesting resources for housing. Patient declines resources for substance abuse. Patient's Mother/Kaylynn Bui has left several messages concerning how patient will be able to get back to [facility] at time of d/c? Patient reports that he would appreciate assistance and will obtain address prior to d/c. Patient has [employer]/Medicaid and most likely has transportation benefit. Patient agreeable for SENIOR CLINICAL RESEARCH ASSOCIATE to speak with Mother on as needed basis. Patient reports that he does have CM/Keri on [facility] whom helps patient when she can? Extent of assistance unknown? Keri's phone number is [phone]. SENIOR CLINICAL RESEARCH ASSOCIATE will attempt to call her on 09-12 re: community resources available to patient and patient requesting she notify the courts that patient will miss court on 09-20-20 due to hospitalization. P: Anticipate that patient will return to [facility] when medically stable. Patient reports that he will provide CM team with address prior to d/c. Patient does not report wanting any assistance with substance abuse and denies any mental health issues. SENIOR CLINICAL RESEARCH ASSOCIATE will continue to follow to offer assistance as requested by patient. Patient made aware that he is not being held at [facility] to complete IV therapy. Staff encouraging patient stay to get needed treatment but the choice is his. ERASMO Mera
[2020-09-11] MEDS: VANCOMYCIN 1,000 MG/200 ML PIGGYBACK 200 MG IV ×2 (15:32→21:23)
[2020-09-11] MEDS: NICOTINE 21 MG PATCH TOP (15:32)
[2020-09-11] MEDS: MAG HYDROX/ALUM/SIMETH 30 ML UDC PO (21:29)
[2020-09-11] MEDS: LORazepam 2 MG/ML INJ 1 MG IV (21:29)
[2020-09-11] MEDS: LORazepam 1 MG TABLET 2 MG PO (22:42)
[2020-09-12] MEDS: PENICILLIN G POTASSIUM 3,000,000 UNIT/50 ML FROZ.PIGGY 100 UNIT IV ×4 (00:09→11:46)
[2020-09-12] MEDS: VANCOMYCIN 1,000 MG/200 ML PIGGYBACK 200 MG IV ×2 (02:11→08:51)
[2020-09-12 04:31] VITALS: BP 134/69; PULSE 85; RESP 14; TEMP 36.3; O2SAT 99
[2020-09-12] MEDS: CLINDAMYCIN 900 MG/50 ML PIGGYBACK 50 MG IV (06:03)
[2020-09-12] MEDS: HYDROCODONE/ACET 5/325 TABLET 1 TAB PO (07:49)
[2020-09-12 08:50] VITALS: BP 133/71; PULSE 81; RESP 15; TEMP 36.4; O2SAT 99
[2020-09-12] MEDS: SODIUM CHLORIDE 0.9% FLUSH 10 ML IV (08:52)
[2020-09-12] MEDS: DOXYCYCLINE HYCLATE 100 MG TABLET PO (11:41)
[2020-09-12] MEDS: NICOTINE 21 MG PATCH TOP (11:41)
[2020-09-12 12:16] VITALS: BP 129/65; PULSE 82; RESP 16; TEMP 36.6; O2SAT 99
--- NOTE | 2020-09-12 13:24 | PM.DS.1 ---
History of Present Illness History of Present Illness Date Patient Seen: 09/12/20 Time Patient Seen: 13:24 Chief complaint: Left Hand Injury/Wound Narrative: Per Dr. Powell, Mr. Bui is a 24M with H active IV drug use with heroin, and methamphetamines, no other medical issues, he is homeless and lives on street or in shelters. He apparently punched a wall in anger approximately 5 days ago and developed swelling of his left hand. He noted that he was developing an infection at least four days ago. He did use meth and heroin earlier today, and is still somewhat confused in his history. He denies fevers/chills. No chest pain, trouble breathing. No nausea, vomiting, diarrhea, abdominal pain. In the ER, workup was done he was afebrile, tachycardic in the 110s,tachypneic in 20s, satting normally, with normal blood pressures. Labs notable for WBC 19, hemoglobin 11.9, sodium 128, co2 14, BUN 37, creatinine 1.41. CK 2661. ABG pH of 7.37, pco2 27.1, hco3 16. Urine tox positive for opiates and amphetamines. Imaging was done with hand xray showing subcutaneous emphysema dorsal to 5th metacarpal and possibly within joint space. Left upper extremity CT scan showed cellulitis with no osteomyetlitis, abscess, or gas in tissues. He was started on IV antibiotics with vancomycin and zosyn and given IV fluids and admitted for further treatment. Discharge Providers Provider Date of admission: 09/07/20 15:22 Discharge Date: 09/12/20 Consults: 09/07/20 12:51 Consult to [facility] [place] - Garbage Truck Driver Stat Comment: 09/08/20 19:09 Consult to Discharge Planning Routine Comment: Consult to Occupational Therapy Evaluate & Treat Comment: Physician Instructions: Evaluate and treat Consult to Physical Therapy Evaluate & Treat Comment: Physician Instructions: Evaluate and Treat Consult to Physical Therapy Evaluate & Treat Comment: Physician Instructions: Evaluate and Treat Discharge provider: Biju Lazo DO Summary Hospital Course Discharge Diagnosis: 1. Strep Pyogenes bacteremia 2. Left hand cellulitis with open ulcer near fifth finger 3. Left forearm cellulitis with abscess 3. R leg cellulitis with abscess drained by surgery 4.Acute meth abuse and meth intoxication that is now resolved 5. Heroin abuse 6. Metabolic acidosis, resolved 7. YOBANY, resolved 8. Mild rhabdomyolysis, resolved 9. Transaminitis, improved. Hospital Course: Mr. Bui is a 24M with PMH of IV drug abuse with heroin, and meth who presented with a hand infection after a recent laceration due to punching a wall. He underwent operative debridement on 09/08 with Orthopedic surgery with purulence drained from his left forearm but no evidence of joint involvement per Orthopedic surgery. Blood cultures from admission grew group A strep, and cultures from the operating room both grew group a strep and MRSA. Patient's repeat blood cultures on 09/09 were negative. He was also managed during this time for polysubstance abuse including methamphetamine and heroin. He had a slight metabolic acidosis and YOBANY, and rhabdomyolysis, and transaminitis on admission the improved with supplemental fluids. Given positive blood cultures for group a strep, he was recommended for 14 days of IV antibiotic therapy to end on 09/23. He was doing well on therapy, but on 09/12 the patient decided to leave against medical advice. He was able to understand the risks including the risk of endocarditis for untreated strep bacteremia. He was advised to return to the emergency room if he had again developed fevers, rash, or felt ill. Given his history of drug use PICC line was removed prior to discharge. To try and manage bacteremia as an outpatient, although this is not ideal therapy at this time, which the patient understood, will continue on augmentin until 09/23 for strep bacteremia and an additional 4 days of doxycycline from discharge to treat the MRSA from his left arm wound. Status at Discharge Cognitive/behavioral status at discharge: oriented Functional status at discharge: independent ambulation Overall status at discharge: patient is progressing back to baseline Time Spent with Patient Time spent: Greater than 30 minutes Exam Vital Signs (past 8 hours): - 09/12/20 08:50 09/12/20 12:16 Temperature 97.6 F 98 F Pulse Rate 81 82 Respiratory Rate 15 16 Blood Pressure 133/71 129/65 Pulse Oximetry 99 99 Oxygen Delivery Method Room Air Oxygen Flow Rate 0 Narrative Exam Narrative: GEN:no acute distress, WDWN HEENT: moist mucous membranes, PERRL NECK: no jvd, trachea midline CV: regular rate and rhythm with no murmurs RESPIRATORY: clear bilaterally with no wheezes, rales, or rhonchi. GASTROINTESTINAL: Abdomen soft, non-tender, nondistended. No organomegaly. Normal bowel sounds EXTREMITIES: Left upper extremity with 1cm ulcer on lateral, ulnar aspect of hand, now bandaged. There is surrounding swelling and erythema. No palpable fluctuance or masses or crepitus. No findings of tenosynovitis. Rest of hand is soft with minimal pain to palpation. Left forearm which was indurated and painful is now bandaged and appears less swollen after washout. Compartments soft. Sensation intact. Hands have chronic appearing ulcers dime sized and scattered with no erythema or tenderness. Right leg with induration and erythema that has superficial bandage. NEURO: awake and oriented, answering questions appropriately aside, no focal deficit, moving all extremities PSYCH: pleasant, cooperative Objective Labs Result Diagrams: 09/10/20 09:40 09/10/20 09:40 [facility] Social History household members: none Smoking Status: Current every day smoker alcohol intake: never Discharge Plan Discharge Plan Patient Disposition: Left Against Medical Advice Provider Discharge Comment: You were admitted to the hospital with a wound infection and group A strep bacteremia. Normally this would be treated with 14 days of IV antibiotics but you elected to leave. This could potentially lead to damage of your heart. Please return if you have rash, fever, chills, or worsening infection in your arm. Please complete antibiotics as prescribed. I highly recommend you establish care with a PCP to check in on your symptoms and possibly do additional blood testing after antibiotic therapy. Discharge orders & Medications Discharge Orders: Discharge (Order); Ordered 09/12/20 Ordered By: Biju Lazo Prescriptions: New doxycycline hyclate 100 mg Tablet 100 mg PO BID 4 Days Qty: 8 RF: 0 amoxicillin-pot clavulanate 875-125 mg tablet 1 tab PO BID 12 Days Qty: 24 RF: 0 Diet/Activity/Treatments Diet: Diet as Tolerated Activity: As tolerated Visit Report/Discharge Packet Instructions: DI for Prescription Opioid Use, Doxycycline, Amoxicillin, DI for Incision and Drainage of a Joint Quality VTE Deep Vein Thrombosis/Pulmonary Embolism Present on Admission: No
--- NOTE | 2020-09-12 14:18 | PC.NURSE ---
Went over dc instructions and medications with patient, questions answered. RX sent to [facility] in [place]. Midline removed. Patient waiting on medicaid cab for ride home.
--- NOTE | 2020-09-12 16:24 | CM.DPC ---
DCP Continued: Patient D/C from hospital this date he ?elected to leave? without recommended completion of a 14-day course of antibiotics for group A strep bacteremia. Medicaid transportation was set-up for patient. Educated patient on the importance of picking his prescribed medication up from the [facility] pharmacy. Provided patient with resource guide for [facility] containing recovery resource/transportation/housing: [employer]? [facility] and housing. Patient was somewhat receptive to information he accepted the packet of information. Ensured patient had his [facility] senior clinical data coordinator?s number: Keri?s . Patient was appropriate for the most part but did appeared slightly agitated, pacing, and asking when the cab would be here to pick him up and expressing a desire to leave the hospital. PLAN: D/C from hospital AMA. JOSE Newell requesting transport. If unavailable medical relief fund to be used after hours. kiln charger nurse and CM Restaurant Cook aware. ERASMO Mera MSW Student
--- NOTE | 2020-09-12 17:47 | CM.DPNOTE ---
Faxed Medicaid transport form per Connie to [phone] and confirmed with Helen. Fax confirmation received. No transport was available by the time I left at 1530. I called Helen and gave her the TAILORING TEACHER number to follow up with RN, and she agreed. I gave the RN the Medicaid transport form with Helen's name and number on it. Will scan form and fax confirmation to EMR. Selene Jeffrey CM Asst.
== END 2020-09-12 16:37 | disposition left against medical advice (07) | DRG 364 ==
LOC: ED 13:08 → AC 15:22
PROVIDERS: Nurse Practitioner Family; Orthopaedic Surgery Orthopaedic Surgery of the Spine; Admitting Provider Internal Medicine; Emergency Provider Emergency Medicine; Referring Provider Emergency Medicine; Visit Provider Internal Medicine
PROC: 0JBK0ZZ Excision of Left Hand Subcutaneous Tissue and Fascia, Open Approach (ICD-10-PCS; principal; 2020-09-08 16:15)
DX: L03.114 Cellulitis of left upper limb (principal); M62.82 Rhabdomyolysis; E87.2 Acidosis; N17.9 Acute kidney failure, unspecified; Z59.0 Homelessness; F15.129 Other stimulant abuse with intoxication, unspecified; F11.10 Opioid abuse, uncomplicated; L98.499 Non-pressure chronic ulcer of skin of other sites with unspecified severity; R78.81 Bacteremia; B95.0 Streptococcus, group A, as the cause of diseases classified elsewhere; B95.62 Methicillin resistant Staphylococcus aureus infection as the cause of diseases classified elsewhere; L02.414 Cutaneous abscess of left upper limb; L02.416 Cutaneous abscess of left lower limb; R74.01 Elevation of levels of liver transaminase levels; Z53.29 Procedure and treatment not carried out because of patient's decision for other reasons; F17.210 Nicotine dependence, cigarettes, uncomplicated; W22.8XXA Striking against or struck by other objects, initial encounter; Z20.822 Contact with and (suspected) exposure to COVID-19; L03.115 Cellulitis of right lower limb
CPT/HCPCS: 36415; 36569; 36600; 73130; 73201; 80048; 80053; 80076; 80202; 80305; 81001; 82550; 82805; 82962; 83605; 83735; 84484; 85014; 85018; 85025; 85027; 85610; 85651; 86140; 86704; 86706; 86708; 87040; 87070; 87075; 87077; 87147; 87150; 87186; 87205; 87340; 87522; 87635; 87797; 93306; 96361; 96365; 96372; 96375; 99284; 99285; 99406; C9803; 90715; J1642; J1650; J2060; J2250; J2405; J2540; J2543; J2704; J2765; J3010; Q9967